=== PATIENT | female | born 1950 | race Caucasian/White ===

== ENCOUNTER 2020-07-16 15:44 | Inpatient (IN) | payer MEDICARE, BC ==
--- NOTE | 2020-07-16 16:42 | CR ---
[id number] RAD/RAD Chest PA or AP 1V EXAM: SINGLE VIEW CHEST. INDICATION: TACHYCARDIA COMPARISON: NO PREVIOUS SIMILAR EXAM IS AVAILABLE FINDINGS: There is minimal scar at the left lung base The lungs otherwise are clear but hyperaerated The cardiac silhouette is enlarged There are median sternotomy sutures IMPRESSION: NO PNEUMONIA OR EDEMA COPD Jeff Vora MD 07/16/20 [id number] Thank you for allowing us to participate in the care of your patient.
--- NOTE | 2020-07-16 17:04 | EDM.PDOC ---
ED HPI GENERAL MEDICAL PROBLEM - General Chief Complaint: Cardiovascular Problem Stated Complaint: RAPID HEAT RATE Time Seen by Provider: 07/16/20 15:55 Source of Information: Reports: Patient History Limitations: Reports: No Limitations - History of Present Illness INITIAL COMMENTS - FREE TEXT/NARRATIVE: Presents emergency room with her spouse for chief complaint of palpitations and sinus tachycardia. Patient went and saw her PCP in the clinic in a nearby town for a different complaint and was noted to have a heart rate in the 140s with sinus per EKG. Patient referred here for further evaluation/management. Patient notes having on and off palpitations for the past 2 days, she is on a beta-jeffery. She did take 50 mg of p.o. metoprolol tartrate on the way over. She takes 50 mg normally twice daily. She has not missed her dose. No caffeine today. She normally does drink a bit of caffeine as she has coffee in the mornings but nothing today. - Related Data Allergies Allergy/AdvReac Type Severity Reaction Status Date / Time No Known Allergies Allergy Verified 07/16/20 17:55 Home Meds: Home Meds Calcium Carbonate/Vitamin D3 [Calcium 600 + Vit D 200] 1 tab PO DAILY 06/25/15 [History] Gemfibrozil 600 mg PO BID 06/25/15 [History] Levothyroxine Sodium 50 mcg PO ACBREAKFAST 06/25/15 [History] Lisinopril [Prinivil] 10 mg PO DAILY 06/25/15 [History] Metoprolol Tartrate 50 mg PO BID 06/25/15 [History] Multivitamin with Minerals [Multiple Vitamin] 1 tab PO DAILY 06/25/15 [History] Triamcinolone Acetonide [Triamcinolone Acetonide 0.1% Crm] 1 applic TOP BID 06/25/15 [History] atorvaSTATin Calcium [Atorvastatin Calcium] 10 mg PO BEDTIME 06/25/15 [History] Aspirin [Halfprin] 81 mg PO DAILY 02/19/17 [History] Warfarin [Coumadin] 5 mg PO BEDTIME 10/16/17 [History] Iron Polysaccharide Complex [Ferric X-150] 150 mg PO BID 07/16/20 [History] Pantoprazole [ProTONIX] 40 mg PO BID 07/16/20 [History] Past Medical History HEENT History: Reports: Impaired Vision, Other (See Below) Other HEENT History: Patient wears glasses Cardiovascular History: Reports: Aneurysm, Cardiomyopathy, Heart Murmur, Heart Valve Replacement, High Cholesterol, Hypertension, Other (See Below) Other Cardiovascular History: History of proximal thoracic aortic aneurysm requiring repair and aortic mechanical aortic valve replacement as below. Postoperative cardiac murmurs including aortic valve insufficiency and perivalvular leakage by echocardiograms as below; grade 2 diastolic dysfunction; moderate biatrial enlargement by echocardiogram valvular; palpitations of unknown etiology with distant event monitor as below Respiratory History: Reports: None, Intubation, Previous Gastrointestinal History: Reports: Cholelithiasis, Chronic Diarrhea, Diverticulosis, Gastritis, GERD, Hemorrhoids, Hiatal Hernia, Irritable Bowel Syndrome Genitourinary History: Reports: Renal Calculus, Other (See Below) Other Genitourinary History: Nonsymptomatic bilateral urolithiasis; stable by CT scans left renal benign mass [employer] History: Reports: Dysfunctional Uterine Bleeding, Endometriosis, Musculoskeletal History: Reports: Arthritis, Back Pain, Chronic, Neck Pain, Chronic, Osteoarthritis Neurological History: Reports: None Psychiatric History: Reports: None Endocrine/Metabolic History: Reports: Hypothyroidism Hematologic History: Reports: Anemia, Anticoagulation Therapy Immunologic History: Reports: None Oncologic (Cancer) History: Reports: None Dermatologic History: Reports: None - Infectious Disease History Infectious Disease History: Reports: Chicken Pox, Mumps - Past Surgical History Head Surgeries/Procedures: Reports: None HEENT Surgical History: Reports: Oral Surgery, Tonsillectomy, Other (See Below) Other HEENT Surgeries/Procedures: Tonsillectomy at age 21; multiple teeth extractions Cardiovascular Surgical History: Reports: Aneurysm, Valve Replacement, Vascular Surgery, Other (See Below) Other Cardiovascular Surgeries/Procedures: Proximal aortic aneurysm repair with concomitant mechanical aortic valve placement in April 2003 Respiratory Surgical History: Reports: None GI Surgical History: Reports: Appendectomy, Cholecystectomy, Colonoscopy, EGD, Other (See Below) Other GI Surgeries/Procedures: Appendectomy concomitant with bilateral tubal ligation in about 1978; laparoscopic cholecystectomy in her 40s Female Surgical History: Reports: Hysterectomy, Salpingo-Oophorectomy, Tubal Ligation, Other (See Below) Other Female Surgeries/Procedures: Tubal ligation in 1978; complete hysterectomy including bilateral salpingo-oophorectomy secondary to endometriosis in Endocrine Surgical History: Reports: None Neurological Surgical History: Reports: None Musculoskeletal Surgical History: Reports: None Oncologic Surgical History: Reports: None Dermatological Surgical History: Reports: None - Past Imaging History Past Imaging History: Reports: Cardiac Echo (Last echocardiogram on 07/07/16 with ejection fraction of 65% and heart findings as above with previous evaluation on 06/25/14), CAT Scan (CT scan of the abdomen and pelvis with contrast on 06/17/15 and 12/17/15), Event Monitor (In about 2006), Mammogram (Last mammogram on 08/02/16), Stress Testing (Low-level cardiac stress test on 05/08/03 after heart surgery as below), Ultrasound (Abdominal ultrasound on 06/14/15) Social & Family History - Family History Cardiac: Reports: Heart Failure, Hypertension Oncologic: Reports: Lymphoma, Other (See Below) Other Oncologic Family History: dad, mom and sister - Tobacco Use Tobacco Use Status *Q: Never Tobacco User - Caffeine Use Caffeine Use: Reports: Coffee Other Caffeine Use: 12 cups/day - Recreational Drug Use Recreational Drug Use: No - Living Situation & Occupation Living situation: Reports: (1970, 3 children) 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 Constitutional: Reports: No Symptoms HEENT: Reports: No Symptoms Respiratory: Denies: Shortness of Breath Cardiovascular: Reports: Palpitations, Other (tachycardia). Denies: Chest Pain, Lightheadedness, Syncope GI/Abdominal: Reports: No Symptoms, Diarrhea, Other (chronic diarrhea, hx of IBS). Denies: Hematemesis, Hematochezia, Melena Skin: Reports: No Symptoms. Denies: Diaphoresis Neurological: Reports: No Symptoms Psychiatric: Denies: Anxiety ED EXAM, GENERAL - Physical Exam Exam: See Below Exam Limited By: No Limitations General Appearance: Alert, WD/WN, No Apparent Distress Head: Atraumatic, Normocephalic Neck: Normal Inspection, Supple Respiratory/Chest: No Respiratory Distress, Lungs Clear Cardiovascular: Normal Peripheral Pulses, No Murmur, Tachycardia Peripheral Pulses: 2+: Radial (L), Radial (R) GI/Abdominal: Normal Bowel Sounds, Soft, Non-Tender Back Exam: Normal Inspection, Full Range of Motion Extremities: Normal Inspection, Normal Range of Motion, Non-Tender, Other (trace pedal edmea, nonpitting ). No: Tarsha's Sign Neurological: Alert, Oriented, Normal Gait Psychiatric: Normal Affect, Normal Mood. No: Anxious Skin Exam: Warm, Dry, Intact. No: Diaphoretic #1 Interpretation EKG Date: 07/16/20 Time: 17:14 Rhythm: A-Flutter Rate (Beats/Min): 136 [place]: Normal P-Wave: Present QRS: Normal ST-T: Normal QT: Normal EKG Interpretation Comments: sinus tachycardia Course - Vital Signs Last Recorded V/S: Last Vital Signs Temp 97.8 F 07/16/20 22:51 Pulse 136 H 07/16/20 22:51 Resp 16 07/16/20 22:51 BP 109/83 07/16/20 22:51 Pulse Ox 97 07/16/20 22:51 - Orders/Labs/Meds Orders: Active Orders 24 hr Category Date Time Status Digoxin [Lanoxin] Med 07/17/20 09:00 Active 125 mcg PO DAILY Sodium Chloride 0.9% [Saline Flush] Med 07/16/20 15:58 Active 10 ml FLUSH Q8HR PRN Saline Lock Insert [OM.PC] Routine Oth 07/16/20 15:58 Ordered Medication Orders Aspirin (Aspirin 81 Mg Tab.Ec) 81 mg PO DAILY [facility] Atorvastatin Calcium (Atorvastatin 10 Mg Tab) 10 mg PO BEDTIME [facility] Last Admin: 07/16/20 23:10 Dose: Not Given Documented by: MEJIA Atropine Sulfate (Atropine 0.1 Mg/Ml 10 Ml Syringe) 0.5 - 1 mg IVPUSH ASDIRECTED PRN PRN Reason: Heart. Digoxin (Digoxin 125 Mcg Tab) 125 mcg PO DAILY [facility] Epinephrine HCl (Epinephrine 1:10,000 1 Mg/10 Ml Syringe) 1 mg IVPUSH ASDIRECTED PRN PRN Reason: Heart. Gemfibrozil (Gemfibrozil 600 Mg Tab) 600 mg PO BID [facility] Last Admin: 07/16/20 23:10 Dose: Not Given Documented by: MEJIA Levothyroxine Sodium (Levothyroxine 50 Mcg Tab) 50 mcg PO ACBREAKFAST [facility] Lidocaine HCl (Lidocaine 2% 100 Mg/5 Ml Syringe) 0 mg IVPUSH ASDIRECTED PRN PRN Reason: Heart. Lisinopril (Lisinopril 10 Mg Tab) 10 mg PO DAILY [facility] Metoprolol Succinate (Metoprolol Succinate 50 Mg Tab.Er) 50 mg PO BID [facility] Last Admin: 07/16/20 22:48 Dose: 50 mg Documented by: MEJIA Multivitamins/Minerals (Multivitamins With Minerals/Iron/Folic Acid/Lycopene Tab) 1 tab PO DAILY [facility] Nitroglycerin (Nitroglycerin 0.4 Mg Tab.Sl) 0.4 mg SL ASDIRECTED PRN PRN Reason: Heart. Pantoprazole Sodium (Pantoprazole 40 Mg Tab.Cr) 40 mg PO BIDAC [facility] Last Admin: 07/16/20 23:10 Dose: Not Given Documented by: MEJIA Polysaccharide Iron Complex (Iron Polysaccharides Complex 150 Mg Cap) 150 mg PO BID [facility] Last Admin: 07/16/20 23:10 Dose: Not Given Documented by: MEJIA Sodium Chloride (Sodium Chloride 0.9% 10 Ml Syringe) 10 ml FLUSH Q8HR PRN PRN Reason: keep vein open Last Admin: 07/16/20 22:52 Dose: 10 ml Documented by: MEJIA Warfarin Sodium (Pharmacy To Dose - Warfarin) 1 dose .XX ASDIRECTED [facility] Labs: Laboratory Tests 07/16/20 07/16/20 07/16/20 Range/Units 15:55 16:30 19:34 WBC 5.19 (5.00-10.00) 10^3/uL RBC 3.56 L (3.80-5.50) 10^6/uL Hgb 9.9 L (12.0-16.0) g/dL Hct 30.5 L (37.0-47.0) % MCV 85.7 (82.0-92.0) fL MCH 27.8 (27.0-31.0) pg MCHC 32.5 (32.0-36.0) g/dL RDW 14.0 (11.5-14.5) % Plt Count 409 H (150-400) 10^3/uL MPV 9.8 (7.4-10.4) fL Immature Gran % (Auto) 0.0 (0.0-5.0) % Neut % (Auto) 58.4 (50.0-70.0) % Lymph % (Auto) 30.4 (20.0-40.0) % Warrick % (Auto) 8.1 H (2.0-8.0) % Eos % (Auto) 2.5 (1.0-3.0) % Baso % (Auto) 0.6 (0.0-1.0) % Neut # (Auto) 3.03 (2.50-7.00) 10^3/uL Lymph # (Auto) 1.58 (1.00-4.00) 10^3/uL Warrick # (Auto) 0.42 (0.10-0.80) 10^3/uL Eos # (Auto) 0.13 (0.10-0.30) 10^3/uL Baso # (Auto) 0.03 (0.00-0.10) 10^3/uL Immature Gran # (Auto) 0.00 (0.00-0.50) 10^3/uL Sodium 142 (136-145) mmol/L Potassium 4.0 (3.5-5.1) mmol/L Chloride 104 (98-107) mmol/L Carbon Dioxide 24.5 (21.0-32.0) mmol/L Anion Gap 17.5 H (5-15) mmol/L BUN 15 (7-18) mg/dL Creatinine 0.91 (0.51-1.17) mg/dL Est Cr Clr Drug Dosing 51.09 mL/min Estimated GFR (MDRD) > 60 mL/min Glucose 109 (70-140) mg/dL Calcium 9.5 (8.7-10.3) mg/dL Magnesium 1.9 (1.8-2.4) mg/dL Total Bilirubin 0.6 (0.2-1.0) mg/dL AST 26 (15-37) U/L ALT 24 (14-63) U/L Alkaline Phosphatase 59 (46-116) U/L Troponin I < 0.017 (0.000-0.056) ng/mL Troponin I High Sens Cancelled B-Natriuretic Peptide 303 H (0-100) pg/mL Total Protein 8.4 H (6.4-8.2) g/dL Albumin 4.51 (3.40-5.00) g/dL TSH, Ultra Sensitive 2.185 (0.340-4.820) uIU/mL SARS CoV-2 RNA Rapid RAFAT Negative (NEGATIVE) Meds: Medications Generic Name Dose Route Start Last Admin Trade Name Freq PRN Reason Stop Dose Admin Aspirin 81 mg 07/17/20 09:00 Aspirin 81 Mg Tab.Ec PO DAILY [facility] Atorvastatin Calcium 10 mg 07/16/20 23:00 07/16/20 23:10 Atorvastatin 10 Mg Tab PO Not Given BEDTIME [facility] Atropine Sulfate 0.5 - 1 mg 07/16/20 23:51 Atropine 0.1 Mg/Ml 10 Ml Syringe IVPUSH ASDIRECTED PRN Heart. Digoxin 125 mcg 07/17/20 09:00 Digoxin 125 Mcg Tab PO DAILY [facility] Epinephrine HCl 1 mg 07/16/20 23:51 Epinephrine 1:10,000 1 Mg/10 Ml Syringe IVPUSH ASDIRECTED PRN Heart. Gemfibrozil 600 mg 07/16/20 23:00 07/16/20 23:10 Gemfibrozil 600 Mg Tab PO Not Given BID [facility] Levothyroxine Sodium 50 mcg 07/17/20 07:30 Levothyroxine 50 Mcg Tab PO ACBREAKFAST [facility] Lidocaine HCl 0 mg 07/16/20 23:51 Lidocaine 2% 100 Mg/5 Ml Syringe IVPUSH ASDIRECTED PRN Heart. Lisinopril 10 mg 07/17/20 09:00 Lisinopril 10 Mg Tab PO DAILY [facility] Metoprolol Succinate 50 mg 07/16/20 22:30 07/16/20 22:48 Metoprolol Succinate 50 Mg Tab.Er PO 50 mg BID THANG Administration Multivitamins/Minerals 1 tab 07/17/20 09:00 Multivitamins With Minerals/Iron/Folic Acid/Lycopene Tab PO DAILY [facility] Nitroglycerin 0.4 mg 07/16/20 23:51 Nitroglycerin 0.4 Mg Tab.Sl SL ASDIRECTED PRN Heart. Pantoprazole Sodium 40 mg 07/16/20 23:00 07/16/20 23:10 Pantoprazole 40 Mg Tab.Cr PO Not Given BIDAC [facility] Polysaccharide Iron Complex 150 mg 07/16/20 23:00 07/16/20 23:10 Iron Polysaccharides Complex 150 Mg Cap PO Not Given BID [facility] Sodium Chloride 10 ml 07/16/20 15:58 07/16/20 22:52 Sodium Chloride 0.9% 10 Ml Syringe FLUSH 10 ml Q8HR PRN Administration keep vein open Warfarin Sodium 1 dose 07/16/20 23:30 Pharmacy To Dose - Warfarin .XX ASDIRECTED THANG Discontinued Medications Generic Name Dose Route Start Last Admin Trade Name Freq PRN Reason Stop Dose Admin Digoxin 250 mcg 07/16/20 19:30 07/16/20 22:51 Digoxin 500 Mcg/2 Ml Amp IVPUSH 07/16/20 23:31 250 mcg Q4H THANG Administration Metoprolol Tartrate 5 mg 07/16/20 17:57 07/16/20 18:09 Metoprolol Tartrate 5 Mg/5 Ml Sdv IVPUSH 07/16/20 17:58 5 mg ONETIME ONE Administration Metoprolol Tartrate 5 mg 07/16/20 18:35 07/16/20 18:40 Metoprolol Tartrate 5 Mg/5 Ml Sdv IVPUSH 07/16/20 18:36 5 mg ONETIME ONE Administration Warfarin Sodium 5 mg 07/16/20 22:30 07/16/20 22:47 Warfarin 5 Mg Tab PO 5 mg BEDTIME THANG Administration - Re-Assessments/Exams Free Text/Narrative Re-Assessment/Exam: 07/16/20 17:19 EKG shows sinus tachycardia, labs check for CBC electrolyte imbalance magnesium, check thyroid, troponin, BNP. chest x-ray 1 view which revealed no acute findings. She has no signs of irregular heart rate no signs of SVT or a flutter. She is basically asymptomatic besides she can feel her heart racing with some palpitations. Denies any chest tightness or pressure or shortness of breath.I did consider pulmonary embolism as being a reason for her underlying sinus tachycardia. She has no shortness of breath or chest pain no SPO2 lower than 96% on room air. She has no signs of DVT no recent surgery or hospitalizations no family history of blood clot or blood clotting disorders, no neoplasm. She is on Coumadin taking daily for her mechanical valve replacement and her last INR today was 2.0. 07/16Labs returned slight elevation of her BNP of 303. Heart rate still 135 did give him 5 mg IV push slow metoprolol. After 15 minutes repeat another 5 mg IV push slow over 3 minutes. We will continue to watch her heart rate 07/16/20 18:46 she has no Fever, volume depletion ,hypoxia, pain, or, anxiety, no signs of pulmonary embolism,No signs of sepsis no hypotension no signs of POTS. Heart rate not improved with the 2 dose of IV push metoprolol. She did take her 50 mg tablet of metoprolol prior to arrival as well at 1530. X-ray was sent up to [place] [facility] , compressor house operator read EKG as 2-1 atrial flutter. Given instructions from the compressor house operator to give digoxin IV push 250 g repeat in 4 hours of 250 mcg and started on her daily dose in the morning of 125 mcg of digoxin. Patient has normal renal function. Patient admitted for observation in [place] with [facility]. Patient stable, rate continues to be 135 bpm with feeling palpitations. Patient understands to follow-up in the clinic Sunday or Sunday for recheck. As well as follow-up with cardiology in [place] as soon as possible per instruction by the compressor house operator. Departure - Departure Time of Disposition: 19:25 Disposition: Refer to Observation Condition: Good Clinical Impression: Atrial flutter Additional Instructions: Increase metoprolol to 75 mg twice daily until follow-up in the clinic this following week with one of the MDs at [place]. Call Sunday at 0800 AM to schedule close follow-up appointment. Take 25 mg metoprolol tonight right before bedtime. Check your heart rate tomorrow throughout the day welcome to come back anytime tomorrow and I be happy to check your heart rate and blood pressure. Pickup a SPO2 monitor at the local pharmacy as well. Sepsis Event Note (ED) - Evaluation Sepsis Screening Result: No Definite Risk - Focused Exam Vital Signs: Vital Signs Temp Pulse Pulse Resp BP BP Pulse Ox 07/16/20 19:15 135 H 15 116/86 98 07/16/20 19:14 135 H 16 119/78 98 07/16/20 19:04 134 H 120/86 07/16/20 19:02 134 H 104/81 07/16/20 18:50 134 H 113/82 07/16/20 18:45 135 H 115/83 97 07/16/20 18:40 135 H 108/85 07/16/20 18:30 134 H 19 111/88 96 07/16/20 18:24 134 H 18 115/89 96 07/16/20 18:16 135 H 177/87 H 07/16/20 18:09 137 H 116/92 H 07/16/20 18:00 130 H 119/83 07/16/20 17:48 136 H 16 110/81 96 07/16/20 17:30 135 H 17 117/91 H 96 07/16/20 16:02 97.6 F 141 H 20 137/88 99 - My Orders Last 24 Hours: My Active Orders 07/16/20 15:58 Sodium Chloride 0.9% [Saline Flush] 10 ml FLUSH Q8HR PRN Saline Lock Insert [OM.PC] Routine 07/17/20 09:00 Digoxin [Lanoxin] 125 mcg PO DAILY - Assessment/Plan Last 24 Hours: My Active Orders 07/16/20 15:58 Sodium Chloride 0.9% [Saline Flush] 10 ml FLUSH Q8HR PRN Saline Lock Insert [OM.PC] Routine 07/17/20 09:00 Digoxin [Lanoxin] 125 mcg PO DAILY
[2020-07-16 17:43] LABS: ANION GAP 17.5 mmol/L (5-15); CHLORIDE,CL 104 mmol/L (98-107); SODIUM,NA 142 mmol/L (136-145)
[2020-07-16] MEDS ORDERED: Metoprolol Tartrate 5 MG/5 ML SDV IVPUSH ONE ×2 (17:57→18:35)
[2020-07-16] MEDS: Digoxin 500 MCG/2 ML Amp IVPUSH SCH ×2 (19:46→22:51)
[2020-07-16] MEDS ORDERED: Warfarin 5 MG Tab PO SCH (22:30)
[2020-07-16] MEDS: Metoprolol Succinate 50 MG Tab.ER PO SCH (22:48)
[2020-07-16] MEDS: Sodium Chloride 0.9% 10 ML Syringe FLUSH PRN (22:52)
[2020-07-16] MEDS: Iron Polysaccharides Complex 150 MG Cap PO SCH (23:10)
[2020-07-16] MEDS: atorvaSTATin 10 MG Tab PO SCH (23:10)
[2020-07-16] MEDS: Pantoprazole 40 MG Tab.CR PO SCH (23:10)
[2020-07-16] MEDS: Gemfibrozil 600 MG Tab PO SCH (23:10)
[2020-07-16] MEDS ORDERED: Atropine 0.1 MG/ML 10 ML Syringe IVPUSH PRN (23:51)
[2020-07-16] MEDS ORDERED: EPINEPHrine 1:10,000 1 MG/10 ML Syringe IVPUSH PRN (23:51)
[2020-07-16] MEDS ORDERED: Lidocaine 2% 100 MG/5 ML Syringe IVPUSH PRN (23:51)
[2020-07-16] MEDS ORDERED: Nitroglycerin 0.4 MG Tab.SL SL PRN (23:51)
[2020-07-17] MEDS ORDERED: Metoprolol Tartrate 5 MG/5 ML SDV IVPUSH ONE (03:49)
[2020-07-17] MEDS: Sodium Chloride 0.9% 10 ML Syringe FLUSH PRN (04:04)
[2020-07-17] MEDS ORDERED: Digoxin 125 MCG Tab ONE (05:00)
[2020-07-17] MEDS: Digoxin 125 MCG Tab PO SCH ×2 (05:02→10:08)
[2020-07-17] MEDS ORDERED: Sodium Chloride 0.9% 500 ML IV ONE (10:00)
[2020-07-17 10:11] LABS: ANION GAP 17.4 mmol/L (5-15); CHLORIDE,CL 102 mmol/L (98-107); SODIUM,NA 140 mmol/L (136-145)
[2020-07-17] MEDS ORDERED: Amiodarone/Dextrose,Iso-Osmotic 150 MG/100 ML Premix Bag IV ONE (10:12)
[2020-07-17] MEDS ORDERED: Amiodarone In Dextrose,Iso-Osm 360 MG in Premix Bag 1 BAG IV SCH ×2 (10:15)
[2020-07-17] MEDS: Lisinopril 10 MG Tab PO SCH (10:42)
[2020-07-17] MEDS: Metoprolol Succinate 50 MG Tab.ER PO SCH ×2 (10:50→21:04)
[2020-07-17] MEDS: Iron Polysaccharides Complex 150 MG Cap PO SCH ×2 (10:50→21:05)
[2020-07-17] MEDS: Multivitamins with Minerals/Iron/Folic Acid/Lycopene Tab PO SCH (10:50)
[2020-07-17] MEDS: Gemfibrozil 600 MG Tab PO SCH ×2 (10:51→21:03)
[2020-07-17] MEDS: Aspirin 81 MG Tab.EC PO SCH (10:51)
[2020-07-17] MEDS: Levothyroxine 50 MCG Tab PO SCH (10:51)
[2020-07-17] MEDS: Pantoprazole 40 MG Tab.CR PO SCH ×2 (10:54→18:33)
[2020-07-17] MEDS ORDERED: Amiodarone In Dextrose,Iso-Osm 360 MG in Premix Bag 1 BAG IV ONE ×2 (11:15)
--- NOTE | 2020-07-17 12:50 | PCM.HP.2 ---
H&P History of Present Illness - General Date of Service: 07/17/20 Admit Problem/Dx: Admission Diagnosis/Problem Admission Diagnosis/Problem Atrial flutter Source of Information: Patient History Limitations: Reports: No Limitations - History of Present Illness Initial Comments - Free Text/Narative: Presents emergency room with her spouse for chief complaint of palpitations and sinus tachycardia. Patient went and saw her PCP in the clinic [place] a nearby town for a different complaint and was noted to have a heart rate in the 140s with sinus per EKG. Patient referred here for further evaluation/management. Patient notes having on and off palpitations for the past 2 days, she is on a beta-jeffery. She did take 50 mg of p.o. metoprolol tartrate on the way over. She takes 50 mg normally twice daily. She has not missed her dose. No caffeine today. She normally does drink a bit of caffeine as she has coffee in the mornings but nothing today. - Related Data Allergies/Adverse Reactions: Allergies Allergy/AdvReac Type Severity Reaction Status Date / Time No Known Allergies Allergy Verified 07/16/20 17:55 Home Medications: Home Meds Calcium Carbonate/Vitamin D3 [Calcium 600 + Vit D 200] 1 tab PO DAILY 06/25/15 [History] Gemfibrozil 600 mg PO BID 06/25/15 [History] Levothyroxine Sodium 50 mcg PO ACBREAKFAST 06/25/15 [History] Lisinopril [Prinivil] 10 mg PO DAILY 06/25/15 [History] Metoprolol Tartrate 50 mg PO BID 06/25/15 [History] Multivitamin with Minerals [Multiple Vitamin] 1 tab PO DAILY 06/25/15 [History] Triamcinolone Acetonide [Triamcinolone Acetonide 0.1% Crm] 1 applic TOP BID 06/25/15 [History] atorvaSTATin Calcium [Atorvastatin Calcium] 10 mg PO BEDTIME 06/25/15 [History] Aspirin [Halfprin] 81 mg PO DAILY 02/19/17 [History] Warfarin [Coumadin] 5 mg PO BEDTIME 10/16/17 [History] Iron Polysaccharide Complex [Ferric X-150] 150 mg PO BID 07/16/20 [History] Pantoprazole [ProTONIX] 40 mg PO BID 07/16/20 [History] Past Medical History HEENT History: Reports: Impaired Vision, Other (See Below) Other HEENT History: Patient wears glasses Cardiovascular History: Reports: Aneurysm, Cardiomyopathy, Heart Murmur, Heart Valve Replacement, High Cholesterol, Hypertension, Other (See Below) Other Cardiovascular History: History of proximal thoracic aortic aneurysm requiring repair and aortic mechanical aortic valve replacement as below. Postoperative cardiac murmurs including aortic valve insufficiency and perivalvular leakage by echocardiograms as below; grade 2 diastolic dysfunction; moderate biatrial enlargement by echocardiogram valvular; palpitations of unknown etiology with distant event monitor as below Respiratory History: Reports: None, Intubation, Previous Gastrointestinal History: Reports: Cholelithiasis, Chronic Diarrhea, Diverticulosis, Gastritis, GERD, Hemorrhoids, Hiatal Hernia, Irritable Bowel Syndrome Genitourinary History: Reports: Renal Calculus, Other (See Below) Other Genitourinary History: Nonsymptomatic bilateral urolithiasis; stable by CT scans left renal benign mass 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: Reports: Dysfunctional Uterine Bleeding, Endometriosis, Musculoskeletal History: Reports: Arthritis, Back Pain, Chronic, Neck Pain, Chronic, Osteoarthritis Neurological History: Reports: None Psychiatric History: Reports: None Endocrine/Metabolic History: Reports: Hypothyroidism Hematologic History: Reports: Anemia, Anticoagulation Therapy Immunologic History: Reports: None Oncologic (Cancer) History: Reports: None Dermatologic History: Reports: None - Infectious Disease History Infectious Disease History: Reports: Chicken Pox, Mumps - Past Surgical History Head Surgeries/Procedures: Reports: None HEENT Surgical History: Reports: Oral Surgery, Tonsillectomy, Other (See Below) Other HEENT Surgeries/Procedures: Tonsillectomy at age 21; multiple teeth extractions Cardiovascular Surgical History: Reports: Aneurysm, Valve Replacement, Vascular Surgery, Other (See Below) Other Cardiovascular Surgeries/Procedures: Proximal aortic aneurysm repair with concomitant mechanical aortic valve placement in April 2003 Respiratory Surgical History: Reports: None GI Surgical History: Reports: Appendectomy, Cholecystectomy, Colonoscopy, EGD, Other (See Below) Other GI Surgeries/Procedures: Appendectomy concomitant with bilateral tubal lig ation in about 1978; laparoscopic cholecystectomy in her 40s Female Surgical History: Reports: Hysterectomy, Salpingo-Oophorectomy, Tubal Ligation, Other (See Below) Other Female Surgeries/Procedures: Tubal ligation in 1978; complete hysterectomy including bilateral salpingo-oophorectomy secondary to endometriosis in Endocrine Surgical History: Reports: None Neurological Surgical History: Reports: None Musculoskeletal Surgical History: Reports: None Oncologic Surgical History: Reports: None Dermatological Surgical History: Reports: None - Past Imaging History Past Imaging History: Reports: Cardiac Echo (Last echocardiogram on 07/07/16 with ejection fraction of 65% and heart findings as above with previous evaluation on 06/25/14), CAT Scan (CT scan of the abdomen and pelvis with contrast on 06/17/15 and 12/17/15), Event Monitor (In about 2006), Mammogram (Last mammogram on 08/02/16), Stress Testing (Low-level cardiac stress test on 05/08/03 after heart surgery as below), Ultrasound (Abdominal ultrasound on 06/14/15) Social & Family History - Family History Cardiac: Reports: Heart Failure, Hypertension Oncologic: Reports: Lymphoma, Other (See Below) Other Oncologic Family History: dad, mom and sister - Tobacco Use Tobacco Use Status *Q: Never Tobacco User - Caffeine Use Caffeine Use: Reports: Coffee Other Caffeine Use: 12 cups/day - Recreational Drug Use Recreational Drug Use: No - Living Situation & Occupation Living situation: Reports: (1970, 3 children) Occupation: Retired (Previous [employer], retired at age 65) H&P Review of Systems - Review of Systems: Review Of Systems: See Below General: Denies: Fever, Chills, Weakness, Fatigue, Decreased Appetite HEENT: Reports: Headaches (mild). Denies: Dysphasia, Sinus Congestion, Sore Throat, Visual Changes Pulmonary: Reports: Shortness of Breath (mild). Denies: Wheezing, Cough Cardiovascular: Reports: Palpitations (feels heart racing), Lightheadedness (when standing, transient). Denies: Chest Pain, Edema Gastrointestinal: Denies: Abdominal Pain, Constipation, Diarrhea, Nausea, Vomiting Genitourinary: Denies: Dysuria, Frequency, Urgency, Hematuria Musculoskeletal: Denies: Neck Pain, Back Pain, Joint Swelling Skin: Denies: Jaundice, Pallor, Bruising, Rash, Wound Psychiatric: Denies: Confusion, Mood Lability, Anxiety Neurological: Reports: Headache (mild). Denies: Confusion, Trouble Speaking, Difficulty Walking Exam - Exam Exam: See Below - Vital Signs Vital Signs: Last Vital Signs Temp 36.4 C 07/17/20 11:00 Pulse 137 H 07/17/20 10:50 Resp 20 07/17/20 11:00 BP 139/95 H 07/17/20 11:00 Pulse Ox 96 07/17/20 11:00 Weight: 85.729 kg - Exam Physical Exam Comments:: GENERAL: Well-appearing adult in no acute distress, sitting up in chair. HEENT: Normocephalic, atraumatic. Conjunctiva clear. Nares patent without discharge. Mucous membranes somewhat dry, posterior pharynx unremarkable. NECK: Supple, no masses. CV: Tachycardic rate and rhythm, no murmurs, rubs, or gallops. Mechanical valve sounds. 2+ radial pulses. PULMONARY: Normal effort, fine crackles noted to left base, otherwise clear, no wheezes or rhonchi. ABDOMEN: Positive bowel sounds, soft, nontender, nondistended. EXTREMITIES: No edema, cyanosis, or clubbing. MUSCULOSKELETAL: Moves all extremities well. NEUROLOGICAL: No obvious deficits. DERMATOLOGIC: No rashes or suspicious lesions in exposed areas. PSYCHIATRIC: Alert, interactive, appropriate affect. - Patient Data Lab Results Last 24 hrs: Laboratory Results - last 24 hr 07/16/20 07/16/20 07/16/20 Range/Units 15:55 16:30 19:34 WBC 5.19 (5.00-10.00) 10^3/uL RBC 3.56 L (3.80-5.50) 10^6/uL Hgb 9.9 L (12.0-16.0) g/dL Hct 30.5 L (37.0-47.0) % MCV 85.7 (82.0-92.0) fL MCH 27.8 (27.0-31.0) pg MCHC 32.5 (32.0-36.0) g/dL RDW 14.0 (11.5-14.5) % Plt Count 409 H (150-400) 10^3/uL MPV 9.8 (7.4-10.4) fL Immature Gran % (Auto) 0.0 (0.0-5.0) % Neut % (Auto) 58.4 (50.0-70.0) % Lymph % (Auto) 30.4 (20.0-40.0) % Major % (Auto) 8.1 H (2.0-8.0) % Eos % (Auto) 2.5 (1.0-3.0) % Baso % (Auto) 0.6 (0.0-1.0) % Neut # (Auto) 3.03 (2.50-7.00) 10^3/uL Lymph # (Auto) 1.58 (1.00-4.00) 10^3/uL Major # (Auto) 0.42 (0.10-0.80) 10^3/uL Eos # (Auto) 0.13 (0.10-0.30) 10^3/uL Baso # (Auto) 0.03 (0.00-0.10) 10^3/uL Immature Gran # (Auto) 0.00 (0.00-0.50) 10^3/uL PT INR (0.9-1.1) Sodium 142 (136-145) mmol/L Potassium 4.0 (3.5-5.1) mmol/L Chloride 104 (98-107) mmol/L Carbon Dioxide 24.5 (21.0-32.0) mmol/L Anion Gap 17.5 H (5-15) mmol/L BUN 15 (7-18) mg/dL Creatinine 0.91 (0.51-1.17) mg/dL Est Cr Clr Drug Dosing 51.09 mL/min Estimated GFR (MDRD) > 60 mL/min Glucose 109 (70-140) mg/dL Calcium 9.5 (8.7-10.3) mg/dL Magnesium 1.9 (1.8-2.4) mg/dL Total Bilirubin 0.6 (0.2-1.0) mg/dL AST 26 (15-37) U/L ALT 24 (14-63) U/L Alkaline Phosphatase 59 (46-116) U/L Troponin I < 0.017 (0.000-0.056) ng/mL Troponin I High Sens Cancelled B-Natriuretic Peptide 303 H (0-100) pg/mL Total Protein 8.4 H (6.4-8.2) g/dL Albumin 4.51 (3.40-5.00) g/dL TSH, Ultra Sensitive 2.185 (0.340-4.820) uIU/mL Digoxin (0.90-2.00) ng/mL SARS CoV-2 RNA Rapid RAFAT Negative (NEGATIVE) 05/04/0807/17/20 07/17/20 Range/Units 07:15 09:40 09:40 WBC 4.74 L (5.00-10.00) 10^3/uL RBC 3.55 L (3.80-5.50) 10^6/uL Hgb 9.9 L (12.0-16.0) g/dL Hct 30.8 L (37.0-47.0) % MCV 86.8 (82.0-92.0) fL MCH 27.9 (27.0-31.0) pg MCHC 32.1 (32.0-36.0) g/dL RDW 14.1 (11.5-14.5) % Plt Count 381 (150-400) 10^3/uL MPV 9.5 (7.4-10.4) fL Immature Gran % (Auto) 0.0 (0.0-5.0) % Neut % (Auto) 60.4 (50.0-70.0) % Lymph % (Auto) 29.3 (20.0-40.0) % Major % (Auto) 6.1 (2.0-8.0) % Eos % (Auto) 3.6 H (1.0-3.0) % Baso % (Auto) 0.6 (0.0-1.0) % Neut # (Auto) 2.86 (2.50-7.00) 10^3/uL Lymph # (Auto) 1.39 (1.00-4.00) 10^3/uL Major # (Auto) 0.29 (0.10-0.80) 10^3/uL Eos # (Auto) 0.17 (0.10-0.30) 10^3/uL Baso # (Auto) 0.03 (0.00-0.10) 10^3/uL Immature Gran # (Auto) 0.00 (0.00-0.50) 10^3/uL PT TNP INR 2.0 H (0.9-1.1) Sodium 140 (136-145) mmol/L Potassium 4.0 (3.5-5.1) mmol/L Chloride 102 (98-107) mmol/L Carbon Dioxide 24.6 (21.0-32.0) mmol/L Anion Gap 17.4 H (5-15) mmol/L BUN 15 (7-18) mg/dL Creatinine 0.75 (0.51-1.17) mg/dL Est Cr Clr Drug Dosing 64.08 mL/min Estimated GFR (MDRD) > 60 mL/min Glucose 173 H (70-140) mg/dL Calcium 9.2 (8.7-10.3) mg/dL Magnesium (1.8-2.4) mg/dL Total Bilirubin (0.2-1.0) mg/dL AST (15-37) U/L ALT (14-63) U/L Alkaline Phosphatase (46-116) U/L Troponin I (0.000-0.056) ng/mL Troponin I High Sens B-Natriuretic Peptide (0-100) pg/mL Total Protein (6.4-8.2) g/dL Albumin (3.40-5.00) g/dL TSH, Ultra Sensitive (0.340-4.820) uIU/mL Digoxin 1.09 (0.90-2.00) ng/mL SARS CoV-2 RNA Rapid RAFAT (NEGATIVE) Result Diagrams: 07/17/20 09:40 07/17/20 09:40 Sepsis Event Note - Evaluation Sepsis Screening Result: No Definite Risk - Focused Exam Vital Signs: Vital Signs Temp Pulse Pulse Resp BP BP Pulse Ox 07/17/20 11:00 36.4 C 20 139/95 H 96 07/17/20 10:50 137 H 139/95 H 07/17/20 06:30 36.3 C 130 H 18 88/59 L 95 07/17/20 05:02 115 H 07/17/20 03:59 133 H 103/68 07/17/20 03:00 35.9 C L 135 H 16 97/65 95 Problem List Initiated/Reviewed/Updated: Yes Orders Last 24hrs: Active Orders 24 hr Category Date Time Status Admission Status [Patient Status] [ADT] Routine ADT 07/16/20 19:36 Active Cardiac Monitoring [RC] 03,07,11,15,19,23 Care 07/16/20 19:36 Active Intake and Output [RC] QSHIFT Care 07/16/20 21:58 Active Oxygen Therapy [RC] PRN Care 07/16/20 21:58 Active Up With Assistance [RC] ASDIRECTED Care 07/16/20 21:58 Active VTE/DVT Education [RC] PER UNIT ROUTINE Care 07/16/20 21:58 Active Vital Signs [RC] 03,07,11,15,19,23 Care 07/16/20 21:58 Active Heart Healthy Diet [DIET] Diet 07/17/20 Breakfast Active INR,PT,PROTHROMBIN TIME [COAG] Routine Lab 07/18/20 05:11 Ordered Amiodarone In Dextrose,Iso-Osm [Nexterone in Dextrose Med 07/17/20 17:15 Active 360 MG/200 ML] 360 mg Premix Bag 1 bag IV ASDIRECTED Amiodarone In Dextrose,Iso-Osm [Nexterone in Dextrose Med 07/17/20 11:15 Active 360 MG/200 ML] 360 mg Premix Bag 1 bag IV ONETIME Aspirin [Halfprin] Med 07/17/20 09:00 Active 81 mg PO DAILY Atropine [Atropine 0.1 MG/ML] Med 07/16/20 23:51 Active 0.5 - 1 mg IVPUSH ASDIRECTED PRN Digoxin [Lanoxin] Med 07/17/20 09:00 Active 125 mcg PO DAILY EPINEPHrine [EPINEPHrine 1:10,000] Med 07/16/20 23:51 Active 1 mg IVPUSH ASDIRECTED PRN FA/Lycopene/Lut/MV,Ca,Iron,Min [Centrum] Med 07/17/20 09:00 Active 1 tab PO DAILY Iron Polysaccharides Complex [Ferrex 150] Med 07/16/20 23:00 Active 150 mg PO BID Levothyroxine [Synthroid] Med 07/17/20 07:30 Active 50 mcg PO ACBREAKFAST Lidocaine 2% [Xylocaine 2%] Med 07/16/20 23:51 Active See Dose Instructions IVPUSH ASDIRECTED PRN Metoprolol Succinate [Toprol XL] Med 07/16/20 22:30 Active 50 mg PO BID Nitroglycerin [Nitrostat] Med 07/16/20 23:51 Active 0.4 mg SL ASDIRECTED PRN Pantoprazole [ProTONIX] Med 07/16/20 23:00 Active 40 mg PO BIDAC Pharmacy to Dose - Warfarin Med 07/16/20 23:30 Pending 1 dose .XX ASDIRECTED Sodium Chloride 0.9% [Saline Flush] Med 07/16/20 15:58 Active 10 ml FLUSH Q8HR PRN Warfarin [Coumadin] Med 07/17/20 18:00 Once 5 mg PO ONETIME ONE atorvaSTATin [Lipitor] Med 07/16/20 23:00 Active 10 mg PO BEDTIME gemfibroziL [Lopid] Med 07/16/20 23:00 Active 600 mg PO BID lisinopriL [Prinivil] Med 07/17/20 09:00 Active 10 mg PO DAILY Saline Lock Insert [OM.PC] Routine Oth 07/16/20 15:58 Ordered Resuscitation Status Routine Resus Stat 07/16/20 21:58 Ordered Medication Orders Aspirin (Aspirin 81 Mg Tab.Ec) 81 mg PO DAILY [facility] Last Admin: 07/17/20 10:51 Dose: 81 mg Documented by: VENKAT Atorvastatin Calcium (Atorvastatin 10 Mg Tab) 10 mg PO BEDTIME [facility] Last Admin: 07/16/20 23:10 Dose: Not Given Documented by: MEJIA Atropine Sulfate (Atropine 0.1 Mg/Ml 10 Ml Syringe) 0.5 - 1 mg IVPUSH ASDIRECTED PRN PRN Reason: Heart. Digoxin (Digoxin 125 Mcg Tab) 125 mcg PO DAILY [facility] Last Admin: 07/17/20 10:08 Dose: Not Given Documented by: Admin: 07/17/20 05:02 Dose: 125 mcg Documented by: MEJIA Epinephrine HCl (Epinephrine 1:10,000 1 Mg/10 Ml Syringe) 1 mg IVPUSH ASDIRECTED PRN PRN Reason: Heart. Gemfibrozil (Gemfibrozil 600 Mg Tab) 600 mg PO BID [facility] Last Admin: 07/17/20 10:51 Dose: 600 mg Documented by: Admin: 07/16/20 23:10 Dose: Not Given Documented by: MEJIA Amiodarone HCl/Dextrose 360 mg (/ Premix) 200 mls @ 33.3 mls/hr IV ONETIME ONE; Protocol Stop: 07/17/20 17:15 Last Admin: 07/17/20 11:38 Dose: 33.3 mls/hr Documented by: VENKAT Amiodarone HCl/Dextrose 360 mg (/ Premix) 200 mls @ 16.7 mls/hr IV ASDIRECTED [facility]; Protocol Stop: 07/18/20 11:14 Levothyroxine Sodium (Levothyroxine 50 Mcg Tab) 50 mcg PO ACBREAKFAST [facility] Last Admin: 07/17/20 10:51 Dose: 50 mcg Documented by: VENKAT Lidocaine HCl (Lidocaine 2% 100 Mg/5 Ml Syringe) 0 mg IVPUSH ASDIRECTED PRN PRN Reason: Heart. Lisinopril (Lisinopril 10 Mg Tab) 10 mg PO DAILY [facility] Last Admin: 07/17/20 10:42 Dose: Not Given Documented by: VENKAT Metoprolol Succinate (Metoprolol Succinate 50 Mg Tab.Er) 50 mg PO BID [facility] Last Admin: 07/17/20 10:50 Dose: 50 mg Documented by: Admin: 07/16/20 22:48 Dose: 50 mg Documented by: MEJIA Multivitamins/Minerals (Multivitamins With Minerals/Iron/Folic Acid/Lycopene Tab) 1 tab PO DAILY [facility] Last Admin: 07/17/20 10:50 Dose: 1 tab Documented by: VENKAT Nitroglycerin (Nitroglycerin 0.4 Mg Tab.Sl) 0.4 mg SL ASDIRECTED PRN PRN Reason: Heart. Pantoprazole Sodium (Pantoprazole 40 Mg Tab.Cr) 40 mg PO BIDAC [facility] Last Admin: 07/17/20 10:54 Dose: 40 mg Documented by: Admin: 07/16/20 23:10 Dose: Not Given Documented by: MEJIA Polysaccharide Iron Complex (Iron Polysaccharides Complex 150 Mg Cap) 150 mg PO BID [facility] Last Admin: 07/17/20 10:50 Dose: 150 mg Documented by: Admin: 07/16/20 23:10 Dose: Not Given Documented by: MEJIA Sodium Chloride (Sodium Chloride 0.9% 10 Ml Syringe) 10 ml FLUSH Q8HR PRN PRN Reason: keep vein open Last Admin: 07/17/20 04:04 Dose: 10 ml Documented by: Admin: 07/16/20 22:52 Dose: 10 ml Documented by: MEJIA Warfarin Sodium (Pharmacy To Dose - Warfarin) 1 dose .XX ASDIRECTED [facility] Warfarin Sodium (Warfarin 5 Mg Tab) 5 mg PO ONETIME ONE Stop: 07/17/20 18:01 Assessment/Plan Comment:: HPI summary: 70-year-old female initially presented to the [facility] in [place] for follow-up and was found to be tachycardic with new onset atrial flutter with an RVR rate of greater than 140. She was asymptomatic at the time. Patient was sent to the emergency department for further evaluation. Upon presentation to the ED patient reported having palpitations on and off for 2 days. She is on chronic beta jeffery therapy for history of previous aortic valve replacement over 10 years ago. Patient is currently anticoagulated with warfarin and INR is therapeutic. Patient was initially given several doses of Lopressor IV in the ED department without improvement in tachycardia noted. Patient was subsequently admitted to observation telemetry for IV digoxin therapy. ED course: VS: Temp 97.8, pulse 136, respirations 16, blood pressure 109/83, pulse ox 97% on room air. EKG shows atrial flutter, rate of 136 after ED provider called for cardiology interpretation of EKG Lab: RBCs 3.56, hemoglobin 9.9, hematocrit 30.5, normocytic, normochromic, platelets 409, electrolytes stable, anion gap 17.5, kidney function stable, magnesium 1.9, liver function unremarkable, troponin less than 0.017, BNP 303, total protein 8.4, TSH 2.185, COVID negative CXR: No acute changes -Is anticoagulated with therapeutic INR Lopressor 5 mg IV given 2 doses ED provider consulted with head resident at [facility] and was instructed to give digoxin IV push 250 with repeat in 4 hours and oral of 125 in the AM Patient was admitted observation telemetry status Hospital course: 07/17/2020: Patient remained tachycardic overnight and was given another dose of IV Lopressor 5 mg in addition to the digoxin she had received. Patient reports no overnight concerns. She denies chest pain, shortness of breath, or edema. Patient does report she had an episode of lightheadedness after knowing her blood pressure was low this a.m. at 88/59. She was given normal saline 1 time 500 mL bolus with improvement in pressure noted at 139/95. This did not make any improvements to her pulses. Call placed to [facility] one call cardiology for further recommendations. Advised to give amiodarone loading dose with subsequent IV drip. If this does not improve rate control patient may have to transfer to [place] for cardioversion. Patient's status changed to inpatient. Labs have remained stable. Digoxin discontinued. We'll obtain CBC and BMP in the a.m. Goal map is 65. Hospitalization problems and plan: # Atrial flutter with RVR, persistent -IV amiodarone -Discontinue digoxin -Changed inpatient -Continue metoprolol 50 mg twice a day #Hypotension, improved -Monitor, as this has improved after initiation of fluid bolus and amiodarone drip. 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 #Essential hypertension, benign, hold lisinopril today due to hypotension #Esophageal reflux, continue pantoprazole #Diaphragmatic hernia #Intestinal disaccharidase deficiencies and disaccharide malabsorption, may continue loperamide when necessary #Headache #Pain in joint, lower leg, continue calcium with vitamin D as well as multivitamin #Ascending aortic aneurysm #S/P aortic valve replacement with metallic valve, continue metoprolol and aspirin #Aortic stenosis #Complex renal cyst #Bilateral kidney stones #Iron deficiency anemia due to chronic blood loss, continue iron and folate acid #Gastric wall thickening #Hemolytic anemia Hospitalization details: # FEN: Patient pushing oral intake but given 1 normal saline 500 mL bolus, electrolytes stable, regular diet # PPX: Warfarin anticoagulation with therapeutic INR as well as aspirin # Code status: Full code # Emergency contact: updated at bedside # Disposition: Plan for discharge home upon resolution of a flutter tachycardia on oral amiodarone or possible transfer to [place] if unsuccessful in the next 24 hours - Mortality Measure Prognosis:: Good
[2020-07-17] MEDS ORDERED: Warfarin 5 MG Tab PO ONE (18:00)
[2020-07-17] MEDS: Amiodarone In Dextrose,Iso-Osm 360 MG in Premix Bag 1 BAG IV SCH ×4 (18:29→18:31)
[2020-07-17] MEDS: atorvaSTATin 10 MG Tab PO SCH (21:04)
[2020-07-18] MEDS: Amiodarone In Dextrose,Iso-Osm 360 MG in Premix Bag 1 BAG IV SCH ×4 (06:38→19:29)
[2020-07-18] MEDS: Pantoprazole 40 MG Tab.CR PO SCH ×2 (06:38→17:09)
[2020-07-18] MEDS: Levothyroxine 50 MCG Tab PO SCH (06:38)
[2020-07-18 07:58] LABS: ANION GAP 15.4 mmol/L (5-15); CHLORIDE,CL 106 mmol/L (98-107); SODIUM,NA 143 mmol/L (136-145)
[2020-07-18] MEDS: Aspirin 81 MG Tab.EC PO SCH (08:47)
[2020-07-18] MEDS: Iron Polysaccharides Complex 150 MG Cap PO SCH ×2 (08:47→20:35)
[2020-07-18] MEDS: Metoprolol Succinate 50 MG Tab.ER PO SCH (08:47)
[2020-07-18] MEDS: Multivitamins with Minerals/Iron/Folic Acid/Lycopene Tab PO SCH (08:47)
[2020-07-18] MEDS: Gemfibrozil 600 MG Tab PO SCH ×2 (08:47→20:35)
[2020-07-18] MEDS ORDERED: Metoprolol Succinate 25 MG Tab.ER PO ONE (10:15)
[2020-07-18] MEDS: Lisinopril 10 MG Tab PO SCH ×2 (10:30→17:10)
--- NOTE | 2020-07-18 10:31 | PCM.PN ---
- General Info Date of Service: 07/18/20 Functional Status: Reports: Pain Controlled, Tolerating Diet, Ambulating, Urinating. Denies: New Symptoms - Review of Systems General: Denies: Fever, Weakness, Fatigue HEENT: Reports: Headaches (mild). Denies: Sinus Congestion, Sore Throat Pulmonary: Reports: Cough (occ dry). Denies: Shortness of Breath, Sputum Cardiovascular: Reports: Palpitations (feels heart speed up at times). Denies: Chest Pain, Edema Gastrointestinal: Denies: Abdominal Pain, Constipation, Diarrhea Genitourinary: Denies: Dysuria, Frequency, Urgency, Hematuria Musculoskeletal: Denies: Neck Pain, Back Pain, Joint Pain Skin: Denies: Jaundice, Pallor, Dryness Neurological: Denies: Confusion, Dizziness, Numbness, Paresthesia, Trouble Speaking, Difficulty Walking Psychiatric: Denies: Confusion, Depression, Mood Lability, Anxiety - Patient Data Vitals - Most Recent: Last Vital Signs Temp 36.2 C 07/18/20 06:22 Pulse 124 H 07/18/20 08:47 Resp 18 07/18/20 06:22 BP 123/87 07/18/20 08:47 Pulse Ox 94 L 07/18/20 06:22 Weight - Most Recent: 85.729 kg I&O - Last 24 Hours: Intake & Output 07/17/20 07/18/20 07/18/20 22:59 06:59 14:59 Intake Total 950 482 Balance 950 482 Lab Results Last 24 Hours: Laboratory Results - last 24 hr 07/17/20 07/18/20 07/18/20 Range/Units 09:40 07:25 07:25 WBC 4.67 L (5.00-10.00) 10^3/uL RBC 3.42 L (3.80-5.50) 10^6/uL Hgb 9.4 L (12.0-16.0) g/dL Hct 29.8 L (37.0-47.0) % MCV 87.1 (82.0-92.0) fL MCH 27.5 (27.0-31.0) pg MCHC 31.5 L (32.0-36.0) g/dL RDW 14.0 (11.5-14.5) % Plt Count 358 (150-400) 10^3/uL MPV 9.9 (7.4-10.4) fL Immature Gran % (Auto) 0.2 (0.0-5.0) % Neut % (Auto) 57.6 (50.0-70.0) % Lymph % (Auto) 31.3 (20.0-40.0) % Martin % (Auto) 7.3 (2.0-8.0) % Eos % (Auto) 3.2 H (1.0-3.0) % Baso % (Auto) 0.4 (0.0-1.0) % Neut # (Auto) 2.69 (2.50-7.00) 10^3/uL Lymph # (Auto) 1.46 (1.00-4.00) 10^3/uL Martin # (Auto) 0.34 (0.10-0.80) 10^3/uL Eos # (Auto) 0.15 (0.10-0.30) 10^3/uL Baso # (Auto) 0.02 (0.00-0.10) 10^3/uL Immature Gran # (Auto) 0.01 (0.00-0.50) 10^3/uL PT 23.6 H (9.2-11.2) SEC INR 2.4 H (0.9-1.1) Sodium 140 (136-145) mmol/L Potassium 4.0 (3.5-5.1) mmol/L Chloride 102 (98-107) mmol/L Carbon Dioxide 24.6 (21.0-32.0) mmol/L Anion Gap 17.4 H (5-15) mmol/L BUN 15 (7-18) mg/dL Creatinine 0.75 (0.51-1.17) mg/dL Est Cr Clr Drug Dosing 64.08 mL/min Estimated GFR (MDRD) > 60 mL/min Glucose 173 H (70-140) mg/dL Calcium 9.2 (8.7-10.3) mg/dL Total Bilirubin (0.2-1.0) mg/dL AST (15-37) U/L ALT (14-63) U/L Alkaline Phosphatase (46-116) U/L Total Protein (6.4-8.2) g/dL Albumin (3.40-5.00) g/dL Digoxin 1.09 (0.90-2.00) ng/mL 07/18/20 Range/Units 07:25 WBC (5.00-10.00) 10^3/uL RBC (3.80-5.50) 10^6/uL Hgb (12.0-16.0) g/dL Hct (37.0-47.0) % MCV (82.0-92.0) fL MCH (27.0-31.0) pg MCHC (32.0-36.0) g/dL RDW (11.5-14.5) % Plt Count (150-400) 10^3/uL MPV (7.4-10.4) fL Immature Gran % (Auto) (0.0-5.0) % Neut % (Auto) (50.0-70.0) % Lymph % (Auto) (20.0-40.0) % Martin % (Auto) (2.0-8.0) % Eos % (Auto) (1.0-3.0) % Baso % (Auto) (0.0-1.0) % Neut # (Auto) (2.50-7.00) 10^3/uL Lymph # (Auto) (1.00-4.00) 10^3/uL Martin # (Auto) (0.10-0.80) 10^3/uL Eos # (Auto) (0.10-0.30) 10^3/uL Baso # (Auto) (0.00-0.10) 10^3/uL Immature Gran # (Auto) (0.00-0.50) 10^3/uL PT (9.2-11.2) SEC INR (0.9-1.1) Sodium 143 (136-145) mmol/L Potassium 4.5 (3.5-5.1) mmol/L Chloride 106 (98-107) mmol/L Carbon Dioxide 26.1 (21.0-32.0) mmol/L Anion Gap 15.4 H (5-15) mmol/L BUN 13 (7-18) mg/dL Creatinine 0.87 (0.51-1.17) mg/dL Est Cr Clr Drug Dosing 55.24 mL/min Estimated GFR (MDRD) > 60 mL/min Glucose 127 (70-140) mg/dL Calcium 9.0 (8.7-10.3) mg/dL Total Bilirubin 0.4 (0.2-1.0) mg/dL AST 23 (15-37) U/L ALT 24 (14-63) U/L Alkaline Phosphatase 58 (46-116) U/L Total Protein 7.8 (6.4-8.2) g/dL Albumin 4.09 (3.40-5.00) g/dL Digoxin (0.90-2.00) ng/mL Med Orders - Current: Current Medications Aspirin (Aspirin 81 Mg Tab.Ec) 81 mg PO DAILY [facility] Last Admin: 07/18/20 08:47 Dose: 81 mg Documented by: Atorvastatin Calcium (Atorvastatin 10 Mg Tab) 10 mg PO BEDTIME [facility] Last Admin: 07/17/20 21:04 Dose: 10 mg Documented by: Atropine Sulfate (Atropine 0.1 Mg/Ml 10 Ml Syringe) 0.5 - 1 mg IVPUSH ASDIRECTED PRN PRN Reason: Heart. Epinephrine HCl (Epinephrine 1:10,000 1 Mg/10 Ml Syringe) 1 mg IVPUSH ASDIRECTED PRN PRN Reason: Heart. Gemfibrozil (Gemfibrozil 600 Mg Tab) 600 mg PO BID [facility] Last Admin: 07/18/20 08:47 Dose: 600 mg Documented by: Amiodarone HCl/Dextrose 360 mg (/ Premix) 200 mls @ 16.7 mls/hr IV ASDIRECTED [facility]; Protocol Stop: 07/18/20 11:14 Last Admin: 07/18/20 06:38 Dose: 16.7 mls/hr Documented by: Levothyroxine Sodium (Levothyroxine 50 Mcg Tab) 50 mcg PO ACBREAKFAST [facility] Last Admin: 07/18/20 06:38 Dose: 50 mcg Documented by: Lidocaine HCl (Lidocaine 2% 100 Mg/5 Ml Syringe) 0 mg IVPUSH ASDIRECTED PRN PRN Reason: Heart. Lisinopril (Lisinopril 10 Mg Tab) 10 mg PO DAILY [facility] Last Admin: 07/17/20 10:42 Dose: Not Given Documented by: Metoprolol Succinate (Metoprolol Succinate 25 Mg Tab.Er) 75 mg PO BID [facility] Multivitamins/Minerals (Multivitamins With Minerals/Iron/Folic Acid/Lycopene Tab) 1 tab PO DAILY [facility] Last Admin: 07/18/20 08:47 Dose: 1 tab Documented by: Nitroglycerin (Nitroglycerin 0.4 Mg Tab.Sl) 0.4 mg SL ASDIRECTED PRN PRN Reason: Heart. Pantoprazole Sodium (Pantoprazole 40 Mg Tab.Cr) 40 mg PO BIDAC [facility] Last Admin: 07/18/20 06:38 Dose: 40 mg Documented by: Polysaccharide Iron Complex (Iron Polysaccharides Complex 150 Mg Cap) 150 mg PO BID [facility] Last Admin: 07/18/20 08:47 Dose: 150 mg Documented by: Sodium Chloride (Sodium Chloride 0.9% 10 Ml Syringe) 10 ml FLUSH Q8HR PRN PRN Reason: keep vein open Last Admin: 07/17/20 04:04 Dose: 10 ml Documented by: Warfarin Sodium (Pharmacy To Dose - Warfarin) 1 dose .XX ASDIRECTED [facility] Warfarin Sodium (Warfarin 5 Mg Tab) 5 mg PO ONETIME ONE Stop: 07/18/20 18:01 Discontinued Medications Amiodarone HCl/Dextrose (Amiodarone/Dextrose,Iso-Osmotic 150 Mg/100 Ml Premix Bag) 150 mg IV BOLUS ONE; Protocol Stop: 07/17/20 10:13 Last Admin: 07/17/20 11:05 Dose: 150 mg Documented by: Digoxin (Digoxin 500 Mcg/2 Ml Amp) 250 mcg IVPUSH Q4H [facility] Stop: 07/16/20 23:31 Last Admin: 07/16/20 22:51 Dose: 250 mcg Documented by: Digoxin (Digoxin 125 Mcg Tab) 125 mcg PO DAILY [facility] Last Admin: 07/17/20 10:08 Dose: Not Given Documented by: Digoxin (Digoxin 125 Mcg Tab) Confirm Administered Dose 125 mcg .ROUTE .STK-MED ONE Stop: 07/17/20 05:01 Last Admin: 07/17/20 05:04 Dose: Not Given Documented by: Sodium Chloride (Normal Saline) 500 mls @ 500 mls/hr IV BOLUS ONE Stop: 07/17/20 10:59 Last Admin: 07/17/20 10:52 Dose: 500 mls/hr Documented by: Amiodarone HCl/Dextrose 360 mg (/ Premix) 200 mls @ 33.3 mls/hr IV ASDIRECTED [facility]; Protocol Amiodarone HCl/Dextrose 360 mg (/ Premix) 200 mls @ 33.3 mls/hr IV ONETIME ONE; Protocol Stop: 07/17/20 17:15 Last Admin: 07/17/20 11:38 Dose: 33.3 mls/hr Documented by: Metoprolol Succinate (Metoprolol Succinate 50 Mg Tab.Er) 50 mg PO BID [facility] Last Admin: 07/18/20 08:47 Dose: 50 mg Documented by: Metoprolol Succinate (Metoprolol Succinate 25 Mg Tab.Er) 25 mg PO ONETIME ONE Stop: 07/18/20 10:16 Metoprolol Tartrate (Metoprolol Tartrate 5 Mg/5 Ml Sdv) 5 mg IVPUSH ONETIME ONE Stop: 07/16/20 17:58 Last Admin: 07/16/20 18:09 Dose: 5 mg Documented by: Metoprolol Tartrate (Metoprolol Tartrate 5 Mg/5 Ml Sdv) 5 mg IVPUSH ONETIME ONE Stop: 07/16/20 18:36 Last Admin: 07/16/20 18:40 Dose: 5 mg Documented by: Metoprolol Tartrate (Metoprolol Tartrate 5 Mg/5 Ml Sdv) 5 mg IVPUSH ONETIME ONE Stop: 07/17/20 03:50 Last Admin: 07/17/20 03:59 Dose: 5 mg Documented by: Warfarin Sodium (Warfarin 5 Mg Tab) 5 mg PO BEDTIME [facility] Last Admin: 07/16/20 22:47 Dose: 5 mg Documented by: Warfarin Sodium (Warfarin 5 Mg Tab) 5 mg PO ONETIME ONE Stop: 07/17/20 18:01 Last Admin: 07/17/20 18:33 Dose: 5 mg Documented by: - Exam Physical Findings Comments:: GENERAL: Well-appearing adult in no acute distress. HEENT: Normocephalic, atraumatic. Conjunctiva clear. Nares patent without discharge. Mucous membranes moist, posterior pharynx unremarkable. NECK: Supple, no masses. CV: Regular rate and rhythm, no murmurs, rubs, or gallops. Mechanical valve sounds noted. 2+ radial pulses. PULMONARY: Normal effort, clear to auscultation bilaterally, no wheezes, rales, or rhonchi. ABDOMEN: Positive bowel sounds, soft, nontender, nondistended. EXTREMITIES: No edema, cyanosis, or clubbing. MUSCULOSKELETAL: Moves all extremities well. NEUROLOGICAL: No obvious deficits. DERMATOLOGIC: No rashes or suspicious lesions in exposed areas. PSYCHIATRIC: Alert, interactive, appropriate affect. - Patient Data Lab Results Last 24 hrs: Laboratory Results - last 24 hr 07/17/20 07/18/20 07/18/20 Range/Units 09:40 07:25 07:25 WBC 4.67 L (5.00-10.00) 10^3/uL RBC 3.42 L (3.80-5.50) 10^6/uL Hgb 9.4 L (12.0-16.0) g/dL Hct 29.8 L (37.0-47.0) % MCV 87.1 (82.0-92.0) fL MCH 27.5 (27.0-31.0) pg MCHC 31.5 L (32.0-36.0) g/dL RDW 14.0 (11.5-14.5) % Plt Count 358 (150-400) 10^3/uL MPV 9.9 (7.4-10.4) fL Immature Gran % (Auto) 0.2 (0.0-5.0) % Neut % (Auto) 57.6 (50.0-70.0) % Lymph % (Auto) 31.3 (20.0-40.0) % Martin % (Auto) 7.3 (2.0-8.0) % Eos % (Auto) 3.2 H (1.0-3.0) % Baso % (Auto) 0.4 (0.0-1.0) % Neut # (Auto) 2.69 (2.50-7.00) 10^3/uL Lymph # (Auto) 1.46 (1.00-4.00) 10^3/uL Martin # (Auto) 0.34 (0.10-0.80) 10^3/uL Eos # (Auto) 0.15 (0.10-0.30) 10^3/uL Baso # (Auto) 0.02 (0.00-0.10) 10^3/uL Immature Gran # (Auto) 0.01 (0.00-0.50) 10^3/uL PT 23.6 H (9.2-11.2) SEC INR 2.4 H (0.9-1.1) Sodium 140 (136-145) mmol/L Potassium 4.0 (3.5-5.1) mmol/L Chloride 102 (98-107) mmol/L Carbon Dioxide 24.6 (21.0-32.0) mmol/L Anion Gap 17.4 H (5-15) mmol/L BUN 15 (7-18) mg/dL Creatinine 0.75 (0.51-1.17) mg/dL Est Cr Clr Drug Dosing 64.08 mL/min Estimated GFR (MDRD) > 60 mL/min Glucose 173 H (70-140) mg/dL Calcium 9.2 (8.7-10.3) mg/dL Total Bilirubin (0.2-1.0) mg/dL AST (15-37) U/L ALT (14-63) U/L Alkaline Phosphatase (46-116) U/L Total Protein (6.4-8.2) g/dL Albumin (3.40-5.00) g/dL Digoxin 1.09 (0.90-2.00) ng/mL 07/18/20 Range/Units 07:25 WBC (5.00-10.00) 10^3/uL RBC (3.80-5.50) 10^6/uL Hgb (12.0-16.0) g/dL Hct (37.0-47.0) % MCV (82.0-92.0) fL MCH (27.0-31.0) pg MCHC (32.0-36.0) g/dL RDW (11.5-14.5) % Plt Count (150-400) 10^3/uL MPV (7.4-10.4) fL Immature Gran % (Auto) (0.0-5.0) % Neut % (Auto) (50.0-70.0) % Lymph % (Auto) (20.0-40.0) % Martin % (Auto) (2.0-8.0) % Eos % (Auto) (1.0-3.0) % Baso % (Auto) (0.0-1.0) % Neut # (Auto) (2.50-7.00) 10^3/uL Lymph # (Auto) (1.00-4.00) 10^3/uL Martin # (Auto) (0.10-0.80) 10^3/uL Eos # (Auto) (0.10-0.30) 10^3/uL Baso # (Auto) (0.00-0.10) 10^3/uL Immature Gran # (Auto) (0.00-0.50) 10^3/uL PT (9.2-11.2) SEC INR (0.9-1.1) Sodium 143 (136-145) mmol/L Potassium 4.5 (3.5-5.1) mmol/L Chloride 106 (98-107) mmol/L Carbon Dioxide 26.1 (21.0-32.0) mmol/L Anion Gap 15.4 H (5-15) mmol/L BUN 13 (7-18) mg/dL Creatinine 0.87 (0.51-1.17) mg/dL Est Cr Clr Drug Dosing 55.24 mL/min Estimated GFR (MDRD) > 60 mL/min Glucose 127 (70-140) mg/dL Calcium 9.0 (8.7-10.3) mg/dL Total Bilirubin 0.4 (0.2-1.0) mg/dL AST 23 (15-37) U/L ALT 24 (14-63) U/L Alkaline Phosphatase 58 (46-116) U/L Total Protein 7.8 (6.4-8.2) g/dL Albumin 4.09 (3.40-5.00) g/dL Digoxin (0.90-2.00) ng/mL Result Diagrams: 07/18/20 07:25 07/18/20 07:25 Sepsis Event Note - Evaluation Sepsis Screening Result: No Definite Risk - Focused Exam Vital Signs: Vital Signs Temp Pulse Pulse Resp BP BP Pulse Ox 07/18/20 08:47 124 H 123/87 07/18/20 06:22 36.2 C 118 H 18 124/84 94 L 07/18/20 03:00 36.3 C 96 18 117/76 95 - Problem List Review Problem List Initiated/Reviewed/Updated: Yes - My Orders Last 24 Hours: My Active Orders 07/17/20 12:53 Patient Status [ADT] Routine Oxygen Therapy [RC] PRN 07/18/20 18:00 Warfarin [Coumadin] 5 mg PO ONETIME ONE 05/02/21 21:00 Metoprolol Succinate [Toprol XL] 75 mg PO BID - Plan Plan:: HPI summary: 70-year-old female initially presented to the [facility] in [place] for follow-up and was found to be tachycardic with new onset atrial flutter with an RVR rate of greater than 140. She was asymptomatic at the time. Patient was sent to the emergency department for further evaluation. Upon presentation to the ED patient reported having palpitations on and off for 2 days. She is on chronic beta jeffery therapy for history of previous aortic valve replacement over 10 years ago. Patient is currently anticoagulated with warfarin and INR is therapeutic. Patient was initially given several doses of Lopressor IV in the ED department without improvement in tachycardia noted. Patient was subsequently admitted to observation telemetry for IV digoxin therapy. ED course: VS: Temp 97.8, pulse 136, respirations 16, blood pressure 109/83, pulse ox 97% on room air. EKG shows atrial flutter, rate of 136 after ED provider called for cardiology interpretation of EKG Lab: RBCs 3.56, hemoglobin 9.9, hematocrit 30.5, normocytic, normochromic, platelets 409, electrolytes stable, anion gap 17.5, kidney function stable, magnesium 1.9, liver function unremarkable, troponin less than 0.017, BNP 303, total protein 8.4, TSH 2.185, COVID negative CXR: No acute changes -Is anticoagulated with therapeutic INR Lopressor 5 mg IV given 2 doses ED provider consulted with medical supervisor at [facility] and was instructed to give digoxin IV push 250 with repeat in 4 hours and oral of 125 in the AM Patient was admitted observation telemetry status Hospital course: 07/17/2020: Patient remained tachycardic overnight and was given another dose of IV Lopressor 5 mg in addition to the digoxin she had received. Patient reports no overnight concerns. She denies chest pain, shortness of breath, or edema. Patient does report she had an episode of lightheadedness after knowing her blood pressure was low this a.m. at 88/59. She was given normal saline 1 time 500 mL bolus with improvement in pressure noted at 139/95. This did not make any improvements to her pulses. Call placed to [facility] one call cardiology for further recommendations. Advised to give amiodarone loading dose with subsequent IV drip. If this does not improve rate control patient may have to transfer to [facility] for cardioversion. Patient's status changed to inpatient. Labs have remained stable. Digoxin discontinued. We'll obtain CBC and BMP in the a.m. Goal map is 65. 07/18/2020: No overnight concerns. No episodes of hypotension overnight. Patient has had mild improvement in tachycardia with rate ranging from 90s to 130s and spending most of the time in the 120s. VSS. Blood pressure 123/87. No edema, lungs are clear. CBC/BMP unchanged. Call to [facility] cardiology with recommendation to continue amiodarone drip and increase patient's metoprolol succinate to 75mg twice daily. Monitor for decompensation. Call tomorrow with update if no improvement. CBC and BMP in the AM. Hospitalization problems and plan: # Atrial flutter with RVR, persistent -continue IV amiodarone -Increase metoprolol succ to 75mg BID -CBC/BMP in the am #Hypotension, resolved #halfway current use of anticoagulant therapy, status post aortic valve replacement -Warfarin dosing per pharmacy Chronic, stable conditions: #Mixed hyperlipidemia, continue gemfibrozil #Hypothyroidism, continue levothyroxine 50 g, TSH completed during ED visit and 2.185. #Essential hypertension, benign, continue lisinopril #Esophageal reflux, continue pantoprazole #Diaphragmatic hernia #Intestinal disaccharidase deficiencies and disaccharide malabsorption, may continue loperamide when necessary #Headache #Pain in joint, lower leg, continue calcium with vitamin D as well as multivitamin #Ascending aortic aneurysm, repaired #S/P aortic valve replacement with metallic valve, increase metoprolol and continue aspirin #Aortic stenosis #Complex renal cyst #Bilateral kidney stones #Iron deficiency anemia due to chronic blood loss, continue iron and folate acid #Gastric wall thickening #Hemolytic anemia Hospitalization details: # FEN: Patient pushing oral intake has amiodarone drip, electrolytes stable, regular diet # PPX: Warfarin anticoagulation with therapeutic INR as well as aspirin # Code status: Full code # Emergency contact: updated by nursing # Disposition: Plan for discharge home upon resolution of a flutter tachycardia on oral amiodarone with increase in metoprolol succ or possible transfer to [facility] if unsuccessful in the next 24 hours
[2020-07-18] MEDS ORDERED: Warfarin 5 MG Tab PO ONE (18:00)
[2020-07-18] MEDS: atorvaSTATin 10 MG Tab PO SCH (20:36)
[2020-07-18] MEDS: Metoprolol Succinate 25 MG Tab.ER PO SCH (20:36)
[2020-07-19] MEDS: Levothyroxine 50 MCG Tab PO SCH (07:13)
[2020-07-19] MEDS: Pantoprazole 40 MG Tab.CR PO SCH ×2 (07:14→17:38)
[2020-07-19] MEDS: Amiodarone In Dextrose,Iso-Osm 360 MG in Premix Bag 1 BAG IV SCH ×4 (07:30→20:14)
[2020-07-19 08:07] LABS: ANION GAP 16.5 mmol/L (5-15); CHLORIDE,CL 105 mmol/L (98-107); SODIUM,NA 141 mmol/L (136-145)
[2020-07-19] MEDS: Gemfibrozil 600 MG Tab PO SCH ×2 (08:16→21:20)
[2020-07-19] MEDS: Multivitamins with Minerals/Iron/Folic Acid/Lycopene Tab PO SCH (08:16)
[2020-07-19] MEDS: Aspirin 81 MG Tab.EC PO SCH (08:16)
[2020-07-19] MEDS: Lisinopril 10 MG Tab PO SCH (08:17)
[2020-07-19] MEDS: Metoprolol Succinate 25 MG Tab.ER PO SCH ×2 (08:19→21:20)
--- NOTE | 2020-07-19 11:34 | PCM.PN ---
- General Info Date of Service: 07/19/20 Subjective Update: 70 year old female sitting up in chair offers no complaint. Feeling well overall. She reports she would like to stay in [place] if possible. Functional Status: Reports: Pain Controlled, Tolerating Diet, Ambulating, Urinating - Review of Systems General: Reports: Appetite (good). Denies: Fever, Weakness, Fatigue HEENT: Denies: Dysphasia, Headaches, Sinus Congestion, Sore Throat, Visual Changes Pulmonary: Denies: Shortness of Breath, Cough, Wheezing Cardiovascular: Reports: Palpitations. Denies: Chest Pain, Edema Gastrointestinal: Denies: Abdominal Pain, Diarrhea, Nausea, Vomiting Genitourinary: Denies: Dysuria, Urgency, Hematuria Musculoskeletal: Denies: Back Pain, Leg Pain, Joint Swelling Skin: Denies: Pallor, Bruising, Rash Neurological: Denies: Headache, Difficulty Walking, Change in Speech Psychiatric: Denies: Depression, Mood Lability, Anxiety - Patient Data Vitals - Most Recent: Last Vital Signs Temp 35.9 C L 07/19/20 11:00 Pulse 120 H 07/19/20 11:00 Resp 20 07/19/20 11:00 BP 125/92 H 07/19/20 11:00 Pulse Ox 98 07/19/20 11:00 Weight - Most Recent: 85.729 kg I&O - Last 24 Hours: Intake & Output 07/18/20 07/19/20 07/19/20 22:59 06:59 14:59 Intake Total 992 130 Output Total 1000 700 Balance -8 -570 Lab Results Last 24 Hours: Laboratory Results - last 24 hr 07/19/20 07/19/20 07/19/20 Range/Units 07:30 07:30 09:00 WBC 4.79 L (5.00-10.00) 10^3/uL RBC 3.39 L (3.80-5.50) 10^6/uL Hgb 9.4 L (12.0-16.0) g/dL Hct 29.4 L (37.0-47.0) % MCV 86.7 (82.0-92.0) fL MCH 27.7 (27.0-31.0) pg MCHC 32.0 (32.0-36.0) g/dL RDW 14.3 (11.5-14.5) % Plt Count 356 (150-400) 10^3/uL MPV 9.6 (7.4-10.4) fL Immature Gran % (Auto) 0.2 (0.0-5.0) % Neut % (Auto) 60.4 (50.0-70.0) % Lymph % (Auto) 28.8 (20.0-40.0) % [place] % (Auto) 6.9 (2.0-8.0) % Eos % (Auto) 3.5 H (1.0-3.0) % Baso % (Auto) 0.2 (0.0-1.0) % Neut # (Auto) 2.89 (2.50-7.00) 10^3/uL Lymph # (Auto) 1.38 (1.00-4.00) 10^3/uL [place] # (Auto) 0.33 (0.10-0.80) 10^3/uL Eos # (Auto) 0.17 (0.10-0.30) 10^3/uL Baso # (Auto) 0.01 (0.00-0.10) 10^3/uL Immature Gran # (Auto) 0.01 (0.00-0.50) 10^3/uL PT TNP INR 2.8 H (0.9-1.1) Sodium 141 (136-145) mmol/L Potassium 3.8 (3.5-5.1) mmol/L Chloride 105 (98-107) mmol/L Carbon Dioxide 23.3 (21.0-32.0) mmol/L Anion Gap 16.5 H (5-15) mmol/L BUN 12 (7-18) mg/dL Creatinine 0.79 (0.51-1.17) mg/dL Est Cr Clr Drug Dosing 60.83 mL/min Estimated GFR (MDRD) > 60 mL/min Glucose 113 (70-140) mg/dL Calcium 8.9 (8.7-10.3) mg/dL Med Orders - Current: Current Medications Aspirin (Aspirin 81 Mg Tab.Ec) 81 mg PO DAILY [facility] Last Admin: 07/19/20 08:16 Dose: 81 mg Documented by: Atorvastatin Calcium (Atorvastatin 10 Mg Tab) 10 mg PO BEDTIME [facility] Last Admin: 07/18/20 20:36 Dose: 10 mg Documented by: Atropine Sulfate (Atropine 0.1 Mg/Ml 10 Ml Syringe) 0.5 - 1 mg IVPUSH ASDIRECTED PRN PRN Reason: Heart. Epinephrine HCl (Epinephrine 1:10,000 1 Mg/10 Ml Syringe) 1 mg IVPUSH ASDIRECTED PRN PRN Reason: Heart. Gemfibrozil (Gemfibrozil 600 Mg Tab) 600 mg PO BID [facility] Last Admin: 07/19/20 08:16 Dose: 600 mg Documented by: Amiodarone HCl/Dextrose 360 mg (/ Premix) 200 mls @ 16.7 mls/hr IV ASDIRECTED [facility]; Protocol Last Admin: 07/19/20 07:30 Dose: 16.7 mls/hr Documented by: Levothyroxine Sodium (Levothyroxine 50 Mcg Tab) 50 mcg PO ACBREAKFAST [facility] Last Admin: 07/19/20 07:13 Dose: 50 mcg Documented by: Lidocaine HCl (Lidocaine 2% 100 Mg/5 Ml Syringe) 0 mg IVPUSH ASDIRECTED PRN PRN Reason: Heart. Lisinopril (Lisinopril 10 Mg Tab) 10 mg PO DAILY [facility] Last Admin: 07/19/20 08:17 Dose: 10 mg Documented by: Metoprolol Succinate (Metoprolol Succinate 25 Mg Tab.Er) 75 mg PO BID [facility] Last Admin: 07/19/20 08:19 Dose: 75 mg Documented by: Multivitamins/Minerals (Multivitamins With Minerals/Iron/Folic Acid/Lycopene T ab) 1 tab PO DAILY [facility] Last Admin: 07/19/20 08:16 Dose: 1 tab Documented by: Nitroglycerin (Nitroglycerin 0.4 Mg Tab.Sl) 0.4 mg SL ASDIRECTED PRN PRN Reason: Heart. Pantoprazole Sodium (Pantoprazole 40 Mg Tab.Cr) 40 mg PO BIDAC [facility] Last Admin: 07/19/20 07:14 Dose: 40 mg Documented by: Polysaccharide Iron Complex (Iron Polysaccharides Complex 150 Mg Cap) 150 mg PO 1200 [facility] Sodium Chloride (Sodium Chloride 0.9% 10 Ml Syringe) 10 ml FLUSH Q8HR PRN PRN Reason: keep vein open Last Admin: 07/17/20 04:04 Dose: 10 ml Documented by: Warfarin Sodium (Pharmacy To Dose - Warfarin) 1 dose .XX ASDIRECTED [facility] Discontinued Medications Amiodarone HCl/Dextrose (Amiodarone/Dextrose,Iso-Osmotic 150 Mg/100 Ml Premix Bag) 150 mg IV BOLUS ONE; Protocol Stop: 07/17/20 10:13 Last Admin: 07/17/20 11:05 Dose: 150 mg Documented by: Digoxin (Digoxin 500 Mcg/2 Ml Amp) 250 mcg IVPUSH Q4H [facility] Stop: 07/16/20 23:31 Last Admin: 07/16/20 22:51 Dose: 250 mcg Documented by: Digoxin (Digoxin 125 Mcg Tab) 125 mcg PO DAILY [facility] Last Admin: 07/17/20 10:08 Dose: Not Given Documented by: Digoxin (Digoxin 125 Mcg Tab) Confirm Administered Dose 125 mcg .ROUTE .STK-MED ONE Stop: 07/17/20 05:01 Last Admin: 07/17/20 05:04 Dose: Not Given Documented by: Sodium Chloride (Normal Saline) 500 mls @ 500 mls/hr IV BOLUS ONE Stop: 07/17/20 10:59 Last Admin: 07/17/20 10:52 Dose: 500 mls/hr Documented by: Amiodarone HCl/Dextrose 360 mg (/ Premix) 200 mls @ 33.3 mls/hr IV ASDIRECTED [facility]; Protocol Amiodarone HCl/Dextrose 360 mg (/ Premix) 200 mls @ 33.3 mls/hr IV ONETIME ONE; Protocol Stop: 07/17/20 17:15 Last Admin: 07/17/20 11:38 Dose: 33.3 mls/hr Documented by: Amiodarone HCl/Dextrose 360 mg (/ Premix) 200 mls @ 16.7 mls/hr IV ASDIRECTED [facility]; Protocol Stop: 07/18/20 11:14 Last Admin: 07/18/20 06:38 Dose: 16.7 mls/hr Documented by: Metoprolol Succinate (Metoprolol Succinate 50 Mg Tab.Er) 50 mg PO BID [facility] Last Admin: 07/18/20 08:47 Dose: 50 mg Documented by: Metoprolol Succinate (Metoprolol Succinate 25 Mg Tab.Er) 25 mg PO ONETIME ONE Stop: 07/18/20 10:16 Last Admin: 07/18/20 10:31 Dose: 25 mg Documented by: Metoprolol Tartrate (Metoprolol Tartrate 5 Mg/5 Ml Sdv) 5 mg IVPUSH ONETIME ONE Stop: 07/16/20 17:58 Last Admin: 07/16/20 18:09 Dose: 5 mg Documented by: Metoprolol Tartrate (Metoprolol Tartrate 5 Mg/5 Ml Sdv) 5 mg IVPUSH ONETIME ONE Stop: 07/16/20 18:36 Last Admin: 07/16/20 18:40 Dose: 5 mg Documented by: Metoprolol Tartrate (Metoprolol Tartrate 5 Mg/5 Ml Sdv) 5 mg IVPUSH ONETIME ONE Stop: 07/17/20 03:50 Last Admin: 07/17/20 03:59 Dose: 5 mg Documented by: Polysaccharide Iron Complex (Iron Polysaccharides Complex 150 Mg Cap) 150 mg PO BID [facility] Last Admin: 07/18/20 20:35 Dose: Not Given Documented by: Warfarin Sodium (Warfarin 5 Mg Tab) 5 mg PO BEDTIME [facility] Last Admin: 07/16/20 22:47 Dose: 5 mg Documented by: Warfarin Sodium (Warfarin 5 Mg Tab) 5 mg PO ONETIME ONE Stop: 07/17/20 18:01 Last Admin: 07/17/20 18:33 Dose: 5 mg Documented by: Warfarin Sodium (Warfarin 5 Mg Tab) 5 mg PO ONETIME ONE Stop: 07/18/20 18:01 Last Admin: 07/18/20 17:10 Dose: 5 mg Documented by: - Exam Physical Findings Comments:: GENERAL: Well-appearing adult in no acute distress. HEENT: Normocephalic, atraumatic. Conjunctiva clear. Nares patent without discharge. Mucous membranes moist, posterior pharynx unremarkable. NECK: Supple, no masses. CV: Regular rate and rhythm, no murmurs, rubs, or gallops. Mechanical valve sounds noted. 2+ radial pulses. PULMONARY: Normal effort, clear to auscultation bilaterally, no wheezes, rales, or rhonchi. ABDOMEN: Positive bowel sounds, soft, nontender, nondistended. EXTREMITIES: No edema, cyanosis, or clubbing. MUSCULOSKELETAL: Moves all extremities well. NEUROLOGICAL: No obvious deficits. DERMATOLOGIC: No rashes or suspicious lesions in exposed areas. PSYCHIATRIC: Alert, interactive, appropriate affect. - Patient Data Lab Results Last 24 hrs: Laboratory Results - last 24 hr 07/19/20 07/19/20 07/19/20 Range/Units 07:30 07:30 09:00 WBC 4.79 L (5.00-10.00) 10^3/uL RBC 3.39 L (3.80-5.50) 10^6/uL Hgb 9.4 L (12.0-16.0) g/dL Hct 29.4 L (37.0-47.0) % MCV 86.7 (82.0-92.0) fL MCH 27.7 (27.0-31.0) pg MCHC 32.0 (32.0-36.0) g/dL RDW 14.3 (11.5-14.5) % Plt Count 356 (150-400) 10^3/uL MPV 9.6 (7.4-10.4) fL Immature Gran % (Auto) 0.2 (0.0-5.0) % Neut % (Auto) 60.4 (50.0-70.0) % Lymph % (Auto) 28.8 (20.0-40.0) % [place] % (Auto) 6.9 (2.0-8.0) % Eos % (Auto) 3.5 H (1.0-3.0) % Baso % (Auto) 0.2 (0.0-1.0) % Neut # (Auto) 2.89 (2.50-7.00) 10^3/uL Lymph # (Auto) 1.38 (1.00-4.00) 10^3/uL [place] # (Auto) 0.33 (0.10-0.80) 10^3/uL Eos # (Auto) 0.17 (0.10-0.30) 10^3/uL Baso # (Auto) 0.01 (0.00-0.10) 10^3/uL Immature Gran # (Auto) 0.01 (0.00-0.50) 10^3/uL PT TNP INR 2.8 H (0.9-1.1) Sodium 141 (136-145) mmol/L Potassium 3.8 (3.5-5.1) mmol/L Chloride 105 (98-107) mmol/L Carbon Dioxide 23.3 (21.0-32.0) mmol/L Anion Gap 16.5 H (5-15) mmol/L BUN 12 (7-18) mg/dL Creatinine 0.79 (0.51-1.17) mg/dL Est Cr Clr Drug Dosing 60.83 mL/min Estimated GFR (MDRD) > 60 mL/min Glucose 113 (70-140) mg/dL Calcium 8.9 (8.7-10.3) mg/dL Result Diagrams: 07/19/20 07:30 07/19/20 07:30 Sepsis Event Note - Evaluation Sepsis Screening Result: No Definite Risk - Focused Exam Vital Signs: Vital Signs Temp Pulse Pulse Resp BP BP Pulse Ox 07/19/20 11:00 35.9 C L 120 H 20 125/92 H 98 07/19/20 08:19 120 H 120/88 07/19/20 08:17 120/88 07/19/20 06:04 36.4 C 92 16 104/76 97 07/19/20 03:00 36.7 C 76 16 100/58 L 98 - Problem List Review Problem List Initiated/Reviewed/Updated: Yes - My Orders Last 24 Hours: My Active Orders 07/18/20 21:00 Metoprolol Succinate [Toprol XL] 75 mg PO BID 07/19/20 12:00 Iron Polysaccharides Complex [Ferrex 150] 150 mg PO 1200 07/20/20 05:11 INR,PT,PROTHROMBIN TIME [COAG] DAILY 07/21/20 05:11 INR,PT,PROTHROMBIN TIME [COAG] DAILY 07/22/20 05:11 INR,PT,PROTHROMBIN TIME [COAG] DAILY 07/23/20 05:11 INR,PT,PROTHROMBIN TIME [COAG] DAILY - Plan Plan:: HPI summary: 70-year-old female initially presented to the [facility] in [place] for follow-up and was found to be tachycardic with new onset atrial flutter with an RVR rate of greater than 140. She was asymptomatic at the time. Patient was sent to the emergency department for further evaluation. Upon presentation to the ED patient reported having palpitations on and off for 2 days. She is on chronic beta jeffery therapy for history of previous aortic valve replacement over 10 years ago. Patient is currently anticoagulated with warfarin and INR is therapeutic. Patient was initially given several doses of Lopressor IV in the ED department without improvement in tachycardia noted. Patient was subsequently admitted to observation telemetry for IV digoxin therapy. ED course: VS: Temp 97.8, pulse 136, respirations 16, blood pressure 109/83, pulse ox 97% on room air. EKG shows atrial flutter, rate of 136 after ED provider called for cardiology interpretation of EKG Lab: RBCs 3.56, hemoglobin 9.9, hematocrit 30.5, normocytic, normochromic, platelets 409, electrolytes stable, anion gap 17.5, kidney function stable, magnesium 1.9, liver function unremarkable, troponin less than 0.017, BNP 303, total protein 8.4, TSH 2.185, COVID negative CXR: No acute changes -Is anticoagulated with therapeutic INR Lopressor 5 mg IV given 2 doses ED provider consulted with food service worker at [facility] and was instructed to give digoxin IV push 250 with repeat in 4 hours and oral of 125 in the AM Patient was admitted observation telemetry status Hospital course: 07/17/2020: Patient remained tachycardic overnight and was given another dose of IV Lopressor 5 mg in addition to the digoxin she had received. Patient reports no overnight concerns. She denies chest pain, shortness of breath, or edema. Patient does report she had an episode of lightheadedness after knowing her blood pressure was low this a.m. at 88/59. She was given normal saline 1 time 500 mL bolus with improvement in pressure noted at 139/95. This did not make any improvements to her pulses. Call placed to [facility] one call cardiology for further recommendations. Advised to give amiodarone loading dose with subsequent IV drip. If this does not improve rate control patient may have to transfer to [place] for cardioversion. Patient's status changed to inpatient. Labs have remained stable. Digoxin discontinued. We'll obtain CBC and BMP in the a.m. Goal map is 65. 07/18/2020: No overnight concerns. No episodes of hypotension overnight. Patient has had mild improvement in tachycardia with rate ranging from 90s to 130s and spending most of the time in the 120s. VSS. Blood pressure 123/87. No edema, lungs are clear. CBC/BMP unchanged. Call to [facility] cardiology with recommendation to continue amiodarone drip and increase patient's metoprolol succinate to 75mg twice daily. Monitor for decompensation. Call tomorrow with update if no improvement. CBC and BMP in the AM. 07/19/2020: No overnight concerns. Patient did have rate below 100 most of the night, averaging in the 80s which was atrial flutter. VSS. Labs unchanged. Last ECHO in October 2019 shows EF 65%. Call to cardiology at [facility] with plan to continue amiodarone drip and increase Toprol to 100mg BID for another 24 hours. Hospitalization problems and plan: # Atrial flutter with RVR, persistent -continue IV amiodarone -Increase metoprolol succ to 100mg BID -CBC/BMP in the am #Hypotension, resolved #care home current use of anticoagulant therapy, status post aortic valve re placement -Warfarin dosing per pharmacy Chronic, stable conditions: #Mixed hyperlipidemia, continue gemfibrozil #Hypothyroidism, continue levothyroxine 50 g, TSH completed during ED visit and 2.185. #Essential hypertension, benign, continue lisinopril #Esophageal reflux, continue pantoprazole #Diaphragmatic hernia #Intestinal disaccharidase deficiencies and disaccharide malabsorption, may continue loperamide when necessary #Headache #Pain in joint, lower leg, continue calcium with vitamin D as well as multivitamin #Ascending aortic aneurysm, repaired #S/P aortic valve replacement with metallic valve, increase metoprolol and continue aspirin #Aortic stenosis #Complex renal cyst #Bilateral kidney stones #Iron deficiency anemia due to chronic blood loss, continue iron and folate acid #Gastric wall thickening #Hemolytic anemia Hospitalization details: # FEN: Patient pushing oral intake has amiodarone drip, electrolytes stable, regular diet # PPX: Warfarin anticoagulation with therapeutic INR as well as aspirin # Code status: Full code # Emergency contact: updated by nursing # Disposition: Plan for discharge home upon resolution of a flutter tachycardia on oral amiodarone with increase in metoprolol succ or possible transfer to [place] if unsuccessful in the next 24 hours or if patient decompensates.
[2020-07-19] MEDS ORDERED: Metoprolol Succinate 25 MG Tab.ER PO ONE (11:35)
[2020-07-19] MEDS: Iron Polysaccharides Complex 150 MG Cap PO SCH (11:36)
[2020-07-19] MEDS ORDERED: Ascorbic Acid 500 MG Tab PO SCH (12:00)
[2020-07-19] MEDS ORDERED: Iron Polysaccharides Complex 150 MG Cap PO SCH (12:00)
[2020-07-19] MEDS ORDERED: Warfarin 5 MG Tab PO SCH (18:00)
[2020-07-19] MEDS: atorvaSTATin 10 MG Tab PO SCH (21:20)
[2020-07-20] MEDS: Pantoprazole 40 MG Tab.CR PO SCH ×2 (06:28→06:43)
[2020-07-20] MEDS: Levothyroxine 50 MCG Tab PO SCH ×2 (06:28→06:43)
[2020-07-20 07:08] LABS: ANION GAP 15.1 mmol/L (5-15); CHLORIDE,CL 106 mmol/L (98-107); SODIUM,NA 141 mmol/L (136-145)
[2020-07-20] MEDS: Lisinopril 10 MG Tab PO SCH (08:19)
[2020-07-20] MEDS: Aspirin 81 MG Tab.EC PO SCH (08:19)
[2020-07-20] MEDS: Metoprolol Succinate 25 MG Tab.ER PO SCH (08:19)
[2020-07-20] MEDS: Gemfibrozil 600 MG Tab PO SCH (08:19)
[2020-07-20] MEDS: Multivitamins with Minerals/Iron/Folic Acid/Lycopene Tab PO SCH (08:19)
[2020-07-20] MEDS: Amiodarone In Dextrose,Iso-Osm 360 MG in Premix Bag 1 BAG IV SCH ×2 (09:54)
--- NOTE | 2020-07-20 10:00 | PCM.DCSUM1 ---
Discharge Summary - Hospital Course Diagnosis: Stroke: No - Discharge Data Discharge Date: 07/20/20 Discharge Disposition: DC/Tfer to Acute Hospital 02 Condition: Good - Referral to Home Health Primary Care Physician: Marily Penaloza PA-C - Discharge Plan *PRESCRIPTION DRUG MONITORING PROGRAM REVIEWED*: Not Applicable *COPY OF PRESCRIPTION DRUG MONITORING REPORT IN PATIENT DEMETRIO: Not Applicable Home Medications: Home Meds Calcium Carbonate/Vitamin D3 [Calcium 600 + Vit D 200] 1 tab PO DAILY 06/25/15 [History] Gemfibrozil 600 mg PO BID 06/25/15 [History] Levothyroxine Sodium 50 mcg PO ACBREAKFAST 06/25/15 [History] Lisinopril [Prinivil] 10 mg PO DAILY 06/25/15 [History] Metoprolol Tartrate 50 mg PO BID 06/25/15 [History] Multivitamin with Minerals [Multiple Vitamin] 1 tab PO DAILY 06/25/15 [History] Triamcinolone Acetonide [Triamcinolone Acetonide 0.1% Crm] 1 applic TOP BID 06/25/15 [History] atorvaSTATin Calcium [Atorvastatin Calcium] 10 mg PO BEDTIME 06/25/15 [History] Aspirin [Halfprin] 81 mg PO DAILY 02/19/17 [History] Warfarin [Coumadin] 5 mg PO BEDTIME 10/16/17 [History] Iron Polysaccharide Complex [Ferric X-150] 150 mg PO DAILY 07/16/20 [History] Pantoprazole [ProTONIX] 40 mg PO BID 07/16/20 [History] Patient Handouts: Sinus Tachycardia - Discharge Summary/Plan Comment DC Time >30 min.: Yes Discharge Summary/Plan Comment: Final Dx: --Atrial flutter with RVR, 3:1; persistent --[facility]it[facility] current use of anticoagulant therapy, status post aortic valve replacement--Coumadin Chronic, stable conditions: #Mixed hyperlipidemia, continue gemfibrozil #Hypothyroidism, continue levothyroxine 50 g, TSH completed during ED visit and 2.185. #Essential hypertension, benign, continue lisinopril #Esophageal reflux, continue pantoprazole #Diaphragmatic hernia #Intestinal disaccharidase deficiencies and disaccharide malabsorption, may continue loperamide when necessary #Headache #Pain in joint, lower leg, continue calcium with vitamin D as well as multivi tamin #Ascending aortic aneurysm, repaired #S/P aortic valve replacement with metallic valve, increase metoprolol and continue aspirin #Aortic stenosis #Complex renal cyst #Bilateral kidney stones #Iron deficiency anemia due to chronic blood loss, continue iron and folate acid #Gastric wall thickening #Hemolytic anemia HPI summary: 70-year-old female initially presented to the [facility] in [place] for follow-up and was found to be tachycardic with new onset atrial flutter with an RVR rate of greater than 140. She was asymptomatic at the time. Patient was se nt to the emergency department for further evaluation. Upon presentation to the ED patient reported having palpitations on and off for 2 days. She is on chronic beta jeffery therapy for history of previous aortic valve replacement over 10 years ago. Patient is currently anticoagulated with warfarin and INR is therapeutic. Patient was initially given several doses of Lopressor IV in the ED department without improvement in tachycardia noted. Patient was subsequently admitted to observation telemetry for IV digoxin therapy. ED course: VS: Temp 97.8, pulse 136, respirations 16, blood pressure 109/83, pulse ox 97% on room air. EKG shows atrial flutter, rate of 136 after ED provider called for cardiology interpretation of EKG Lab: RBCs 3.56, hemoglobin 9.9, hematocrit 30.5, normocytic, normochromic, platelets 409, electrolytes stable, anion gap 17.5, kidney function stable, magnesium 1.9, liver function unremarkable, troponin less than 0.017, BNP 303, total protein 8.4, TSH 2.185, COVID negative CXR: No acute changes -Is anticoagulated with therapeutic INR Lopressor 5 mg IV given 2 doses ED provider consulted with [facility]els[facility] picker at [facility] and was instructed to give digoxin IV push 250 with repeat in 4 hours and oral of 125 in the AM Patient was admitted observation telemetry status Hospital course: 07/17/2020: Patient remained tachycardic overnight and was given another dose of IV Lopressor 5 mg in addition to the digoxin she had received. Patient reports no overnight concerns. She denies chest pain, shortness of breath, or edema. Patient does report she had an episode of lightheadedness after knowing her blood pressure was low this a.m. at 88/59. She was given normal saline 1 time 500 mL bolus with improvement in pressure noted at 139/95. This did not make any improvements to her pulses. Call placed to [facility] one call cardiology for further recommendations. Advised to give amiodarone loading dose with subsequent IV drip. If this does not improve rate control patient may have to transfer to [facility] for cardioversion. Patient's status changed to inpatient. Labs have remained stable. Digoxin discontinued. We'll obtain CBC and BMP in the a.m. Goal map is 65. 07/18/2020: No overnight concerns. No episodes of hypotension overnight. Patient has had mild improvement in tachycardia with rate ranging from 90s to 130s and spending most of the time in the 120s. VSS. Blood pressure 123/87. No edema, lungs are clear. CBC/BMP unchanged. Call to [facility] cardiology with recommendation to continue amiodarone drip and increase patient's metoprolol succinate to 75mg twice daily. Monitor for decompensation. Call tomorrow with update if no improvement. CBC and BMP in the AM. 07/19/2020: No overnight concerns. Patient did have rate below 100 most of the night, averaging in the 80s which was atrial flutter. VSS. Labs unchanged. Last ECHO in October 2019 shows EF 65%. Call to cardiology at [facility] with plan to continue amiodarone drip and increase Toprol to 100mg BID for another 24 hours. 07/20/2020; continues atrial flutter 3:1 ratio heart rate 1 teens to 120, no shortness of breath, mild lower extremity edema, has pain, INR 2.9, continues with amiodarone drip, thyroid within normal limits, hemoglobin 9.4, potassium sodium normal, BUN/creatinine normal Disposition Due to ongoing atrial flutter refractory to amiodarone, CCB; beta-jeffery therapy will be transferred to tertiary care center [facility] for cardiology evaluation for consideration of schedule cardioversion. We will make n.p.o. - Patient Data Vitals - Most Recent: Last Vital Signs Temp 97.3 F 07/20/20 06:49 Pulse 116 H 07/20/20 08:19 Resp 20 07/20/20 06:49 BP 145/92 H 07/20/20 08:19 Pulse Ox 96 07/20/20 06:49 Weight - Most Recent: 189 lb I&O - Last 24 hours: Intake & Output 07/19/20 07/20/20 07/20/20 22:59 06:59 14:59 Intake Total 793 209 Output Total 1700 665 Balance -755 -602 Lab Results - Last 24 hrs: Laboratory Results - last 24 hr 07/20/20 07/20/20 07/20/20 Range/Units 06:45 06:45 07:35 WBC 5.55 (5.00-10.00) 10^3/uL RBC 3.40 L (3.80-5.50) 10^6/uL Hgb 9.4 L (12.0-16.0) g/dL Hct 29.3 L (37.0-47.0) % MCV 86.2 (82.0-92.0) fL MCH 27.6 (27.0-31.0) pg MCHC 32.1 (32.0-36.0) g/dL RDW 14.4 (11.5-14.5) % Plt Count 372 (150-400) 10^3/uL MPV 10.0 (7.4-10.4) fL Immature Gran % (Auto) 0.2 (0.0-5.0) % Neut % (Auto) 59.3 (50.0-70.0) % Lymph % (Auto) 30.6 (20.0-40.0) % [place] % (Auto) 7.0 (2.0-8.0) % Eos % (Auto) 2.5 (1.0-3.0) % Baso % (Auto) 0.4 (0.0-1.0) % Neut # (Auto) 3.29 (2.50-7.00) 10^3/uL Lymph # (Auto) 1.70 (1.00-4.00) 10^3/uL [place] # (Auto) 0.39 (0.10-0.80) 10^3/uL Eos # (Auto) 0.14 (0.10-0.30) 10^3/uL Baso # (Auto) 0.02 (0.00-0.10) 10^3/uL Immature Gran # (Auto) 0.01 (0.00-0.50) 10^3/uL INR 2.9 H (0.9-1.1) Sodium 141 (136-145) mmol/L Potassium 4.1 (3.5-5.1) mmol/L Chloride 106 (98-107) mmol/L Carbon Dioxide 24.0 (21.0-32.0) mmol/L Anion Gap 15.1 H (5-15) mmol/L BUN 11 (7-18) mg/dL Creatinine 0.78 (0.51-1.17) mg/dL Est Cr Clr Drug Dosing 61.61 mL/min Estimated GFR (MDRD) > 60 mL/min Glucose 111 (70-140) mg/dL Calcium 8.8 (8.7-10.3) mg/dL Magnesium 2.0 (1.8-2.4) mg/dL Med Orders - Current: Current Medications Ascorbic Acid (Ascorbic Acid 500 Mg Tab) 500 mg PO 1200 [facility] Last Admin: 07/19/20 12:11 Dose: 500 mg Documented by: Aspirin (Aspirin 81 Mg Tab.Ec) 81 mg PO DAILY [facility] Last Admin: 07/20/20 08:19 Dose: 81 mg Documented by: Atorvastatin Calcium (Atorvastatin 10 Mg Tab) 10 mg PO BEDTIME [facility] Last Admin: 07/19/20 21:20 Dose: 10 mg Documented by: Atropine Sulfate (Atropine 0.1 Mg/Ml 10 Ml Syringe) 0.5 - 1 mg IVPUSH ASDIRECTED PRN PRN Reason: Heart. Epinephrine HCl (Epinephrine 1:10,000 1 Mg/10 Ml Syringe) 1 mg IVPUSH ASDIRECTED PRN PRN Reason: Heart. Gemfibrozil (Gemfibrozil 600 Mg Tab) 600 mg PO BID [facility] Last Admin: 07/20/20 08:19 Dose: 600 mg Documented by: Amiodarone HCl/Dextrose 360 mg (/ Premix) 200 mls @ 16.7 mls/hr IV ASDIRECTED [facility]; Protocol Last Admin: 07/19/20 20:14 Dose: 16.7 mls/hr Documented by: Levothyroxine Sodium (Levothyroxine 50 Mcg Tab) 50 mcg PO ACBREAKFAST [facility] Last Admin: 07/20/20 06:43 Dose: Not Given Documented by: Lidocaine HCl (Lidocaine 2% 100 Mg/5 Ml Syringe) 0 mg IVPUSH ASDIRECTED PRN PRN Reason: Heart. Lisinopril (Lisinopril 10 Mg Tab) 10 mg PO DAILY [facility] Last Admin: 07/20/20 08:19 Dose: 10 mg Documented by: Metoprolol Succinate (Metoprolol Succinate 25 Mg Tab.Er) 100 mg PO BID [facility] Last Admin: 07/20/20 08:19 Dose: 100 mg Documented by: Multivitamins/Minerals (Multivitamins With Minerals/Iron/Folic Acid/Lycopene Tab) 1 tab PO DAILY [facility] Last Admin: 07/20/20 08:19 Dose: 1 tab Documented by: Nitroglycerin (Nitroglycerin 0.4 Mg Tab.Sl) 0.4 mg SL ASDIRECTED PRN PRN Reason: Heart. Pantoprazole Sodium (Pantoprazole 40 Mg Tab.Cr) 40 mg PO BIDAC [facility] Last Admin: 07/20/20 06:43 Dose: Not Given Documented by: Polysaccharide Iron Complex (Iron Polysaccharides Complex 150 Mg Cap) 150 mg PO 1200 [facility] Last Admin: 07/19/20 12:11 Dose: 150 mg Documented by: Sodium Chloride (Sodium Chloride 0.9% 10 Ml Syringe) 10 ml FLUSH Q8HR PRN PRN Reason: keep vein open Last Admin: 07/17/20 04:04 Dose: 10 ml Documented by: Warfarin Sodium (Pharmacy To Dose - Warfarin) 1 dose .XX ASDIRECTED [facility] Warfarin Sodium (Warfarin 5 Mg Tab) 5 mg PO DAILY@1800 [facility] Last Admin: 07/19/20 17:38 Dose: 5 mg Documented by: Discontinued Medications Amiodarone HCl/Dextrose (Amiodarone/Dextrose,Iso-Osmotic 150 Mg/100 Ml Premix Bag) 150 mg IV BOLUS ONE; Protocol Stop: 07/17/20 10:13 Last Admin: 07/17/20 11:05 Dose: 150 mg Documented by: Digoxin (Digoxin 500 Mcg/2 Ml Amp) 250 mcg IVPUSH Q4H [facility] Stop: 07/16/20 23:31 Last Admin: 07/16/20 22:51 Dose: 250 mcg Documented by: Digoxin (Digoxin 125 Mcg Tab) 125 mcg PO DAILY [facility] Last Admin: 07/17/20 10:08 Dose: Not Given Documented by: Digoxin (Digoxin 125 Mcg Tab) Confirm Administered Dose 125 mcg .ROUTE .STK-MED ONE Stop: 07/17/20 05:01 Last Admin: 07/17/20 05:04 Dose: Not Given Documented by: Sodium Chloride (Normal Saline) 500 mls @ 500 mls/hr IV BOLUS ONE Stop: 07/17/20 10:59 Last Admin: 07/17/20 10:52 Dose: 500 mls/hr Documented by: Amiodarone HCl/Dextrose 360 mg (/ Premix) 200 mls @ 33.3 mls/hr IV ASDIRECTED [facility]; Protocol Amiodarone HCl/Dextrose 360 mg (/ Premix) 200 mls @ 33.3 mls/hr IV ONETIME ONE; Protocol Stop: 07/17/20 17:15 Last Admin: 07/17/20 11:38 Dose: 33.3 mls/hr Documented by: Amiodarone HCl/Dextrose 360 mg (/ Premix) 200 mls @ 16.7 mls/hr IV ASDIRECTED [facility]; Protocol Stop: 07/18/20 11:14 Last Admin: 07/18/20 06:38 Dose: 16.7 mls/hr Documented by: Metoprolol Succinate (Metoprolol Succinate 50 Mg Tab.Er) 50 mg PO BID [facility] Last Admin: 07/18/20 08:47 Dose: 50 mg Documented by: Metoprolol Succinate (Metoprolol Succinate 25 Mg Tab.Er) 75 mg PO BID [facility] Last Admin: 07/19/20 08:19 Dose: 75 mg Documented by: Metoprolol Succinate (Metoprolol Succinate 25 Mg Tab.Er) 25 mg PO ONETIME ONE Stop: 07/18/20 10:16 Last Admin: 07/18/20 10:31 Dose: 25 mg Documented by: Metoprolol Succinate (Metoprolol Succinate 25 Mg Tab.Er) 25 mg PO ONETIME ONE Stop: 07/19/20 11:36 Last Admin: 07/19/20 12:11 Dose: 25 mg Documented by: Metoprolol Tartrate (Metoprolol Tartrate 5 Mg/5 Ml Sdv) 5 mg IVPUSH ONETIME ONE Stop: 07/16/20 17:58 Last Admin: 07/16/20 18:09 Dose: 5 mg Documented by: Metoprolol Tartrate (Metoprolol Tartrate 5 Mg/5 Ml Sdv) 5 mg IVPUSH ONETIME ONE Stop: 07/16/20 18:36 Last Admin: 07/16/20 18:40 Dose: 5 mg Documented by: Metoprolol Tartrate (Metoprolol Tartrate 5 Mg/5 Ml Sdv) 5 mg IVPUSH ONETIME ONE Stop: 07/17/20 03:50 Last Admin: 07/17/20 03:59 Dose: 5 mg Documented by: Polysaccharide Iron Complex (Iron Polysaccharides Complex 150 Mg Cap) 150 mg PO BID [facility] Last Admin: 07/19/20 11:36 Dose: Not Given Documented by: Warfarin Sodium (Warfarin 5 Mg Tab) 5 mg PO BEDTIME [facility] Last Admin: 07/16/20 22:47 Dose: 5 mg Documented by: Warfarin Sodium (Warfarin 5 Mg Tab) 5 mg PO ONETIME ONE Stop: 07/17/20 18:01 Last Admin: 07/17/20 18:33 Dose: 5 mg Documented by: Warfarin Sodium (Warfarin 5 Mg Tab) 5 mg PO ONETIME ONE Stop: 07/18/20 18:01 Last Admin: 07/18/20 17:10 Dose: 5 mg Documented by:
[2020-07-20] MEDS ORDERED: Sodium Chloride 0.9% 1,000 ML IV SCH (10:15)
[2020-07-20 11:08] VITALS: BP 149/97; PULSE 118
== END 2020-07-20 11:07 | DRG 309 ==
LOC: KA.ED 15:44 → KA.MS 19:36 → OBSVTOIN 07-17 12:53
PROVIDERS: ADMIT Nurse Practitioner Family; ATTEND Family Medicine
DX: I48.92 Unspecified atrial flutter (principal); D58.9 Hereditary hemolytic anemia, unspecified; I42.9 Cardiomyopathy, unspecified; R00.0 Tachycardia, unspecified; E03.9 Hypothyroidism, unspecified; I10 Essential (primary) hypertension; K21.9 Gastro-esophageal reflux disease without esophagitis; K57.90 Diverticulosis of intestine, part unspecified, without perforation or abscess without bleeding; K44.9 Diaphragmatic hernia without obstruction or gangrene; K58.9 Irritable bowel syndrome, unspecified; E73.8 Other lactose intolerance; E73.9 Lactose intolerance, unspecified; I71.4 Abdominal aortic aneurysm, without rupture; I35.0 Nonrheumatic aortic (valve) stenosis; N28.1 Cyst of kidney, acquired; D50.0 Iron deficiency anemia secondary to blood loss (chronic); Z79.82 Long term (current) use of aspirin; Z79.890 Hormone replacement therapy; H54.7 Unspecified visual loss; I95.9 Hypotension, unspecified; E78.00 Pure hypercholesterolemia, unspecified; K52.9 Noninfective gastroenteritis and colitis, unspecified; D50.9 Iron deficiency anemia, unspecified; M19.90 Unspecified osteoarthritis, unspecified site; G89.29 Other chronic pain; M54.2 Cervicalgia; E78.2 Mixed hyperlipidemia; M54.9 Dorsalgia, unspecified; Z90.89 Acquired absence of other organs; Z90.49 Acquired absence of other specified parts of digestive tract; Z79.899 Other long term (current) drug therapy; Z95.2 Presence of prosthetic heart valve; Z87.442 Personal history of urinary calculi; Z79.01 Long term (current) use of anticoagulants; Z90.710 Acquired absence of both cervix and uterus; Z98.51 Tubal ligation status; Z20.822 Contact with and (suspected) exposure to COVID-19
CPT/HCPCS: 36415 ×2; 36416; 71045; 80048; 80053; 80162; 83735; 83880; 84443; 84484; 85025 ×2; 85610; 96374; 96376; 99285; A9270 ×10; J0282 ×2; J1160 ×2; J3490 ×3; J7040; U0002; 93005; 96365; 96375; 99284; G0378; J7030